=== PATIENT | female | born 1935 | race Caucasian/White ===

== ENCOUNTER 2016-04-16 10:02 | Inpatient (IN) | payer MEDICARE ==
[~2016-04-16] VITALS: Ht 162.6 cm; Wt 67.9 kg
[~2016-04-16 10:02] MED LIST: CIPR-231 PO; GABA-502 PO; HYDR-4003 PO; PRD1T PO; PRD5T PO; ZOLP5TAB6 PO; ZYL100 PO
[2016-04-16 10:06] VITALS: BP 114/73; PULSE 61; RESP 14; O2SAT 96
--- NOTE | 2016-04-16 10:16 | ED.REPORT ---
HPI-General Illness Date of Service Apr 16, 2016 ED Provider: Amari Flowers DO Pt is an 80 y/o female w/ a hx of prev UTIs, diabetes, HTN, presenting to the ED c/o generalized weakness. She was diagnosed with an uncomplicated UTI on her last hospital admission December 2015. Pt c/o associated fatigue, chills. She is normally a 1 person assist but this morning she was so weak that she couldn't put any weight on her legs. The patient had an I&D of an abscess in her left buttock performed by her PCP Dr. Ventura and packing gauze was replaced. She denies any worsening symptoms of the abscess. Pt denies cough, SOB, dysuria, abdominal pain, nausea, vomiting. She is not currently taking any antibiotics. Nursing Notes Stated Complaint: WEAKNESS,LOW GRADE FEVER Chief Complaint: General Complaint Nursing Notes Reviewed: Yes Allergies: Coded Allergies: pseudoephedrine (Verified Allergy, Unknown, 08/29/15) Scheduled Allopurinol (Allopurinol) 100 Mg Tablet 150 MG PO DAILY Ciprofloxacin (Cipro) 500 Mg Tablet 500 MG PO BID Gabapentin (Gabapentin) 300 Mg Capsule 900 MG PO TID PredniSONE (PredniSONE) 1 Mg Tab 1 MG PO QAM take along with 5mg tab for a total dose of 6mg daily Prednisone (PredniSONE) 5 Mg Tab 5 MG PO QAM take along with 1mg tab for a total dose of 6mg daily Scheduled PRN Hydrocodone-Acetaminophen 5-325 mg (Hydrocodone-Acetaminophen 5-325 mg) 1 Each Tablet 1-2 TABLET PO Q6H PRN PRN For Pain Zolpidem (Zolpidem) 5 Mg Tablet 5 MG PO HS PRN PRN Insomnia General Time Seen by MD: 10:14 Chief Complaint Weakness Hx Obtained From: Patient Arrived By: Wheelchair Sudden in Onset?: No Onset Occurred: 9 - 12 hours ago Symptom Duration: Since onset Severity: Current: No pain currently Severity: Maximum: No pain Recent Healthcare: Recent doctor visit Similar Sx Previous: Yes Past Medical History Past Medical History Hx of osteoarthritis DDD with neuropathy, followed by Dr. Odell Diabetes Hypertension Hx UTI Past Surgical History Bilat knee replacements Right hip replacement Family History Noncontributory Smoking History Former Smoker Social History Drug Use: Denies drug use Other Social History: Good social support, Local resident Ambulatory Status Wheelchair Review of Systems Full Review of Systems Constitutional: Reports: Fatigue, Fever, Weakness - generalized Respiratory: Denies: Non-productive cough, Shortness of breath GI: Denies: Abdominal pain, Nausea, Vomiting Female: Denies: Dysuria Skin: Reports Rash Complete sys rev & neg: except as marked. Physical Exam Vital Signs Vital Signs Date Time Temp Pulse Resp B/P Pulse Ox O2 Delivery O2 Flow Rate FiO2 04/16/16 10:06 36.9 61 14 114/73 96 Room Air Initial VS: Reviewed, Vital signs normal Head / Eyes: Atraumatic, Normocephalic, PERRL ENT: Mucous membranes moist, Conjunctiva normal, No scleral icterus Neck: Supple, Full range of motion Respiratory: Breath sounds normal, Clear to auscultation, No respiratory distress Cardiovascular: Regular rate & rhythm, Heart sounds normal, Intact distal pulses Abdomen / GI: Soft, Non-tender Neurologic: Alert, Oriented, Nonfocal Psychiatric: Mood/affect normal, Behavior normal, Normal thought content General/Constitutional: Awake, Alert, Cooperative, Not toxic appearing Distress / Hydration: Positive: Distress mild Appears generally fatigued Lower Extremity / Pelvis / MS: Atraumatic, Full range of motion, No deformity, Neurologic intact, Vascular intact, No compartment syndrome, No circumferential injury 5x5 cm left gluteal abscess Interpretation & Diagnostics Interpretation & Diagnostics: CT pelvis w/ contrast: IMPRESSION: Prominent midline and left paramedian fatty soft tissue edema, and inflammatory response over a 5 cm diameter area dorsal to the lower third of the left sacrum, containing gas bubbles extending almost to the skin surface. Please correlate for presence of a draining sinus in this area. Definite CT evidence of osteomyelitis is not found but MR scanning may be warranted with contrast enhancement to assess for extension of infection into the osseous elements of the left sacrum and pelvis. Dictated by: Jose R Butt M.D. on 04/16/2016 at 13:11 Approved by: Jose R Butt M.D. on 04/16/2016 at 13:14 Lab Results Interpretation Result Diagram: 04/16/16 1050 04/16/16 1050 Test 04/16/16 10:50 04/16/16 11:29 White Blood Count 13.1th/mm3 (3.8-10.1) Red Blood Count 3.93mil/mm3 (3.90-5.20) Hemoglobin 10.6g/dL (12.0-15.6) Hematocrit 35.5% (35.0-46.0) Mean Corpuscular Volume 90.3fL (81-100) Mean Corpuscular Hemoglobin 27.0pg (27.0-35.0) Mean Corpuscular Hemoglobin Concent 29.9% (32.0-37.0) Red Cell Distribution Width 18.7% (12.3-15.4) Platelet Count 300bil/L (150-400) Neutrophils (%) (Auto) 74.8% (40-74) Lymphocytes (%) (Auto) 16.1% (14-46) Monocytes (%) (Auto) 7.1% (4-12) Eosinophils (%) (Auto) 1.0% (0-5) Basophils (%) (Auto) 0.2% (0-3) Sodium Level 141mEq/L (134-144) Potassium Level 3.8mEq/L (3.5-5.2) Chloride Level 102mEq/L (97-108) Carbon Dioxide Level 22mmol/L (18-29) Blood Urea Nitrogen 27mg/dL (8-27) Creatinine 0.91mg/dL (0.57-1.00) Estimat Glomerular Filtration Rate 85mL/min (>59) Glucose Level 149mg/dL (60-99) Lactic Acid Level 1.5mmol/L (0.4-2.0) Calcium Level 9.1mg/dL (8.5-10.1) Magnesium Level 1.6mg/dL (1.6-2.6) Total Bilirubin 0.2mg/dL (0.0-1.2) Aspartate Amino Transf (AST/SGOT) 37U/L (0-50) Alanine Aminotransferase (ALT/SGPT) 10U/L (0-32) Alkaline Phosphatase 108U/L (25-165) Troponin T 0.014ug/L (0.0-0.011) Total Protein 5.8g/dL (6.4-8.4) Albumin 3.8g/dL (3.4-5.0) Procalcitonin 0.14ng/mL (0.00-0.08) Urine Color Straw (YELLOW) Urine Appearance Hazy (CLEAR,HAZY) Urine pH 5.5 (5.0-8.0) Urine Specific [place] 1.030 (1.003-1.035) Urine Protein 100mg/dL (NEG,TRACE) Urine Glucose (UA) Negativemg/dL (NEGATIVE) Urine Ketones Negativemg/dL (NEGATIVE) Urine Occult Blood Small (NEGATIVE) Urine Nitrite Negative (NEGATIVE) Urine Bilirubin Negative (NEGATIVE) Urine Urobilinogen Normalmg/dL (NORMAL) Urine Leukocyte Esterase Negative (NEGATIVE) Urine RBC 0-2/hpf (0-2) Urine WBC 0-5/hpf (0-5) Urine Epithelial Cells Occasional/hpf (NONE-MOD) Urine Crystals None seen (NONE SEEN) Urine Bacteria Many/hpf (NONE-FEW) Urine Hyaline Casts None/lpf (NONE) Urine Granular Casts Occasional (NONE SEEN) Urine Waxy Casts None seen (NONE SEEN) Urine Red Blood Cell Casts None seen (NONE SEEN) Urine White Blood Cell Casts None seen (NONE SEEN) Urine Mucus None seen (None Seen) Urine Trichomonas None seen (NONE SEEN) Urine Yeast None (NONE SEEN) Urinalysis Comment None Urine Culture Reflexed Indicated ECG Interpretation ECG Interpretation: Sinus rhythm rate 70s-80s Multiple PVCs and PACs Time: 10:38 Interpreted by: ED physician Normal ECG Interpretation: No acute ischemic changes X-Ray Chest Interpretation Chest Xray Interpretation: IMPRESSION: A prior CT has shown a medial glenoid margin fracture dislocation, at the right shoulder and the current study again shows unusually prominent medial deviation of the humeral head, position beneath the coracoid process. 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 A source of generalized weakness is not seen. Dictated by: Jose R Butt M.D. on 04/16/2016 at 11:22 Approved by: Jose R Butt M.D. on 04/16/2016 at 11:24 View: Portable, 1 view Interpretation / Wet Read by: Interpret - Radiologist Re-Eval/Medical Decision Med Decision/Clinical Course Concern for possible bacteremia and compensated buttock abscess. Elevation of troponin without cardiovascular symptoms, aspirin was given. Patient was started on antibiotics and admitted. Source of Hx: Old records Time of Eval: 12:10 Re-Evaluation/Progress Note: Pt rechecked. Informed pt of need for admission for further evaluation and management of abscess. Pt understands and agrees with plan for admission. All questions addressed. Consultation #1: Referral / Consult Name: Hiram Vidales MD Consulted With: Surgeon Call Returned at: 13:33 Health And Safety Technician: Agrees with eval, Agrees with plan Note: Will consult during admit. Consultation #2: Referral / Consult Name: Sonny Ricardo MD Consulted With: Hospitalist Call Returned at: 13:54 Health And Safety Technician: Will see patient, Agrees with eval, Agrees with plan, Accepts admit Note: Case discussed. Consultation #3: Referral / Consult Name: Jaxson Pascual MD Call Returned at: 14:02 Health And Safety Technician: Agrees with eval, Agrees with plan Note: Consulted infectious disease. He will see the patient during admit. Counseled Regarding: Diagnosis, Lab results, Need for admission Discharge & Departure Primary Impression: Abscess of buttock, left Additional Impressions: Elevated troponin Generalized weakness Disposition: ADMITTED TO HOSPITAL Discharge Condition All VS Reviewed: Yes Condition: Stable Referrals: Giovanny Ventura MD (PCP) Scribe Attestation Portions of this note were transcribed by Aubrey Pedro. I, Dr. Flowers personally performed the history, physical exam and medical decision-making; I reviewed and confirmed the accuracy of the information in the transcribed note. Signed by Katrin Damon, 04/16/16 - 1100 copies to: Giovanny Ventura MD, Timothy S DO Apr 16, 2016 10:16 AUBREY PEDRO Apr 16, 2016 10:26
[2016-04-16] MEDS ORDERED: 0.9% Sodium Chloride 1,000 ML IV ONE (10:28)
[2016-04-16 11:02] LABS: BASOPHILS % (AUTO) 0.2 % (0-3); MONOCYTES % (AUTO) 7.1 % (4-12); Mean Corpuscular Volume 90.3 fL (81-100); NEUTROPHILS % (AUTO) 74.8 % (40-74); Platelet Count 300 bil/L (150-400)
--- NOTE | 2016-04-16 11:26 | DRSVH ---
PROCEDURE: X-RAY CHEST ONE VIEW, PORTABLE ([id number]) INDICATIONS: generalized weakness TECHNIQUE: One view of the chest was acquired. COMPARISON: [facility], CT, CT SHOULDER RT WO CON, 10/10/2014, 13:05. [facility], CR, XR CHEST 1VW (PORTABLE), 12/21/2015, 10:50. [facility], CR, XR CHEST 1VW (PORT ABLE), 12/18/2015, 15:08. FINDINGS: Surgical changes and devices: None. Lungs and pleura: No pleural effusions or pneumothorax. Lungs are clear. Mediastinum: Mediastinal contours appear normal. Heart size is normal. Bones and chest wall: No suspicious bony lesions. Note is made of persistent laxity of the ligament s of the right shoulder with what likely is a anterior medial subluxation but conceivably could be a chronic anterior medial subcoracoid dislocation. Overlying soft tissues appear unremarkable. IMPRESSION: A prior CT has shown a medial glenoid margin fracture dislocation, at the right shoulder and the current study again shows unusually prominent medial deviation of the humeral head, position beneath the coracoid process. 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 A source of generalized weakness is not seen. Dictated by: Jose R Butt M.D. on 04/16/2016 at 11:22 Approved by: Jose R Butt M.D. on 04/16/2016 at 11:24
[2016-04-16 11:31] LABS: TROPONIN T 0.014 ug/L (0.0-0.011)
[2016-04-16 11:35] LABS: APPEARANCE,URINE HAZY (CLEAR,HAZY); COLOR,URINE STRAW (YELLOW); OCCULT BLOOD,URINE SMALL (NEGATIVE); PH,URINE 5.5 (5.0-8.0)
[2016-04-16 11:38] LABS: UROBILINOGEN,URINE NORMAL (NORMAL)
[2016-04-16 11:42] LABS: Magnesium 1.6 mg/dL (1.6-2.6)
[2016-04-16] MEDS ORDERED: cefTRIAXone Inj 1,000 MG in Dextrose 5% Minibag Plus 50 ML IV ONE (12:10)
[2016-04-16] MEDS ORDERED: Vancomycin Dose per Pharmacist XX ONE (12:31)
[2016-04-16] MEDS ORDERED: Vancomycin Inj 1,000 MG in IV Premix 1 EACH IV ONE (12:35)
--- NOTE | 2016-04-16 12:40 | PCM.CONPHA ---
Subjective Date of Service: Apr 16, 2016 Requesting Provider: Amari Flowers DO Reason for Pharmacy Consult: Vancomycin Dosing Objective Vital Signs Date Time Temp Pulse Resp B/P Pulse Ox O2 Delivery O2 Flow Rate FiO2 04/16/16 10:06 36.9 61 14 114/73 96 Room Air Weight (Kilograms): 67.27 Height (Feet): 5 Height (Inches): 4 Test 04/16/16 10:50 04/16/16 11:29 White Blood Count 13.1th/mm3 (3.8-10.1) Red Blood Count 3.93mil/mm3 (3.90-5.20) Hemoglobin 10.6g/dL (12.0-15.6) Hematocrit 35.5% (35.0-46.0) Mean Corpuscular Volume 90.3fL (81-100) Mean Corpuscular Hemoglobin 27.0pg (27.0-35.0) Mean Corpuscular Hemoglobin Concent 29.9% (32.0-37.0) Red Cell Distribution Width 18.7% (12.3-15.4) Platelet Count 300bil/L (150-400) Neutrophils (%) (Auto) 74.8% (40-74) Lymphocytes (%) (Auto) 16.1% (14-46) Monocytes (%) (Auto) 7.1% (4-12) Eosinophils (%) (Auto) 1.0% (0-5) Basophils (%) (Auto) 0.2% (0-3) Sodium Level 141mEq/L (134-144) Potassium Level 3.8mEq/L (3.5-5.2) Chloride Level 102mEq/L (97-108) Carbon Dioxide Level 22mmol/L (18-29) Blood Urea Nitrogen 27mg/dL (8-27) Creatinine 0.91mg/dL (0.57-1.00) Estimat Glomerular Filtration Rate 85mL/min (>59) Glucose Level 149mg/dL (60-99) Lactic Acid Level 1.5mmol/L (0.4-2.0) Calcium Level 9.1mg/dL (8.5-10.1) Magnesium Level 1.6mg/dL (1.6-2.6) Total Bilirubin 0.2mg/dL (0.0-1.2) Aspartate Amino Transf (AST/SGOT) 37U/L (0-50) Alanine Aminotransferase (ALT/SGPT) 10U/L (0-32) Alkaline Phosphatase 108U/L (25-165) Troponin T 0.014ug/L (0.0-0.011) Total Protein 5.8g/dL (6.4-8.4) Albumin 3.8g/dL (3.4-5.0) Procalcitonin 0.14ng/mL (0.00-0.08) Urine Color Straw (YELLOW) Urine Appearance Hazy (CLEAR,HAZY) Urine pH 5.5 (5.0-8.0) Urine Specific [place] 1.030 (1.003-1.035) Urine Protein 100mg/dL (NEG,TRACE) Urine Glucose (UA) Negativemg/dL (NEGATIVE) Urine Ketones Negativemg/dL (NEGATIVE) Urine Occult Blood Small (NEGATIVE) Urine Nitrite Negative (NEGATIVE) Urine Bilirubin Negative (NEGATIVE) Urine Urobilinogen Normalmg/dL (NORMAL) Urine Leukocyte Esterase Negative (NEGATIVE) Urine RBC 0-2/hpf (0-2) Urine WBC 0-5/hpf (0-5) Urine Epithelial Cells Occasional/hpf (NONE-MOD) Urine Crystals None seen (NONE SEEN) Urine Bacteria Many/hpf (NONE-FEW) Urine Hyaline Casts None/lpf (NONE) Urine Granular Casts Occasional (NONE SEEN) Urine Waxy Casts None seen (NONE SEEN) Urine Red Blood Cell Casts None seen (NONE SEEN) Urine White Blood Cell Casts None seen (NONE SEEN) Urine Mucus None seen (None Seen) Urine Trichomonas None seen (NONE SEEN) Urine Yeast None (NONE SEEN) Urinalysis Comment None Urine Culture Reflexed Indicated Assessment/Plan Assessment/Plan Vancomycin dosing per pharmacy Indication: abscess Vancomycin trough goal: 15-20 Labs: Weight: 67.27 kg SCr: 0.91 CrCl: ~42 mL/min (CG using IBW) Give one time loading dose of vancomycin 1000 mg IV now (roughly 15 mg/kg). Please reorder vancomycin per pharmacy if vancomycin is to be continued after admit. Thank you, Grisel Alcantar Pharmacist Grisel Alcantar Apr 16, 2016 12:40
--- NOTE | 2016-04-16 13:16 | DRSVH ---
PROCEDURE: CT PELVIS WITH CONTRAST ([id number]) INDICATIONS: left gluteal abscess TECHNIQUE: After the administration of intravenous contrast, 5 mm thick sections acquired from the iliac crests to the symphysis. 5 mm coronal and sagittal reformats were acquired. For radiation dose reduction, the following was used: automated exposure control, adjustment of mA and/or kV according to patient size. COMPARISON: [facility], CT, CT HIP RT WO CON, 12/18/2015, 11:43. [facility], CR, XR PELVIS W LATERAL HIP RT, 12/30/2015, 14:25. FINDINGS: Image quality: Excellent. Peritoneum and bowel: Bowel loops demonstrate normal wall thickness and caliber. No free fluid or a ir. Genitourinary: Bladder wall thickness is normal. Nodes and vessels: No iliac, pelvic, or inguinal adenopathy by size criteria. Iliac vessels demonst rate normal size and enhancement. Bones: No suspicious bony lesions that would indicate presence of osteomyelitis. Miscellaneous: No inguinal hernias. There is a left paramedian area prominent inflammation measurin g approximately 5 cm in maximal transverse dimension, containing internal gas bubbles, but extending almost to the skin surface, dorsal to the lower third of the left sacrum. The appearance may represe nt a manifestation of decubitus ulceration, or there may be a draining abscess extending to the skin surface. No rim enhancing drainable fluid collection is seen in this area, however. Moderate edema extends within the fatty soft tissues of the midline and left paramedian posterior elsewhere, contigu ously. IMPRESSION: Prominent midline and left paramedian fatty soft tissue edema, and inflammatory response over a 5 cm diameter area dorsal to the lower third of the left sacrum, containing gas bubbles extend ing almost to the skin surface. Please correlate for presence of a draining sinus in this area. Def inite CT evidence of osteomyelitis is not found but MR scanning may be warranted with contrast enhanc ement to assess for extension of infection into the osseous elements of the left sacrum and pelvis. Dictated by: Jose R Butt M.D. on 04/16/2016 at 13:11 Approved by: Jose R Butt M.D. on 04/16/2016 at 13:14
[2016-04-16] MEDS ORDERED: 0.9% Sodium Chloride 1,000 ML IV SCH (14:09)
[2016-04-16] MEDS ORDERED: Alum-Mag Hydrox-Simeth 30 mL Suspension PO PRN ×2 (14:10→19:30)
[2016-04-16] MEDS ORDERED: Ondansetron 2 mg/mL 2 mL Inj IVPUSH PRN ×2 (14:10→19:30)
[2016-04-16] MEDS ORDERED: FERR325C PO (15:03)
[2016-04-16] MEDS ORDERED: ACET325C PO (15:04)
[2016-04-16 15:43] VITALS: BP 112/71; PULSE 62; RESP 16; O2SAT 97
[2016-04-16 15:59] VITALS: PULSE 79
--- NOTE | 2016-04-16 15:59 | NUR ---
Admit Patient report given by Marco Arvizu in ED to [facility] nurse. Patient arrived to room 3018 via gurney and was transferred by staff to bed. Patient unable to bare weight at this time. Patient alert and oriented. Patient has abscess that is packed on coccyx. Patient has bruise on right elbow with 2 small scabs. Patient has old faded greenish bruise on left side of abdomen. Patient has scab on left jurado. Swollen ankles more n the right than left. Patient feet are dry. Patient was played orientation video and given call light.
[2016-04-16 16:09] VITALS: BP 127/63; PULSE 40; RESP 16; O2SAT 95
--- NOTE | 2016-04-16 17:26 | PCM.PHAPRO ---
Progress Date of Service: Apr 16, 2016 Vanco per Rx Indication: Abscess/ possible bacteremia Trough goal is 10-15, but aiming for 15 Will administer 2nd dose <24 hrs from 1st dose Trough scheduled 30 mins before 4th dose on 04/19, @ 0800 Juwan Solomon PharmD Apr 16, 2016 17:26
--- NOTE | 2016-04-16 17:48 | DRSVH ---
PROCEDURE: US VEINOUS LEG DUPLEX UNILATERAL, RIGHT INDICATIONS: 80 year-old female with new onset of right leg swelling. TECHNIQUE: Real-time imaging, as well as color and pulse Doppler interrogation, were performed of the lower extr emity deep veins from the inguinal ligament to the popliteal fossa. COMPARISON: None. FINDINGS: There is noncompressible echogenic occlusive thrombus involving the midportion of the supe rficial femoral vein, extending into the superior portion is well. There is additional echogenic thro mbus within the popliteal vein, as well as portions of the posterior tibial vein. The common femoral vein is normally compressible, and free of intraluminal thrombus. There is absent augmentation respon se to distal compression maneuver. IMPRESSION: Extensive deep venous thrombosis involving the superficial femoral vein, popliteal vein, and posterior tibial vein. Dictated by: Tavo Edwards M.D. on 04/16/2016 at 17:39 Approved by: Tavo Edwards M.D. on 04/16/2016 at 17:42
[2016-04-16] MEDS ORDERED: Heparin 5,000 Unit/mL Inj IVPUSH ONE (18:40)
[2016-04-16] MEDS ORDERED: Heparin 5,000 Unit/mL Inj IVPUSH PRN (18:40)
--- NOTE | 2016-04-16 19:03 | CONS ---
[address] [address] CONSULTATION REPORT PATIENT: XIAO MEEK : 1935 MR#: [id number] ADMIT: 04/16/2016 JOB ID: [id number] DATE OF SERVICE: 04/16/2016 REASON FOR CONSULTATION: I was asked by Dr. Flowers in the emergency department to evaluate this patient's left buttock abscess wound. HISTORY OF PRESENT ILLNESS: The patient is a 80-year-old female, who is a assisted resident who presented to the emergency department today with complaint of weakness and a febrile episode. She reports a history of a left buttock abscess which it sounds like it has slowly been brewing since January. She says that this was previously aspirated by her primary care provider but then recurred. It was then drained two times. Most recently it has been drained and then packed. In the emergency department, she was found to have a mild leukocytosis of 13.1. A CT scan of the pelvis was obtained which shows the abscess cavity. It was packed at the time of the CT. There is a little bit of fat stranding but no undrained fluid collection. She has therefore been admitted to the hospital for further treatment. PAST MEDICAL HISTORY: 1. Osteoarthritis. 2. Diabetes. 3. Hypertension. 4. Degenerative disk disease. 5. Prior history of UTIs. PAST SURGICAL HISTORY: 1. Bilateral knee replacement. 2. Right hip replacement. MEDICATIONS: Current medications reviewed and include: 1. Allopurinol. 2. Cipro. 3. Gabapentin. 4. Prednisone. FAMILY HISTORY: Family history is noncontributory. SOCIAL HISTORY: She is a former smoker. She resides in a assisted. REVIEW OF SYSTEMS: Full review of systems is obtained as per HPI. PHYSICAL EXAMINATION: She is afebrile with a temperature 36.7 degrees, heart rate of 60s and 70s, blood pressure is 127/63, she is satting 95% on room air with respiratory rate 16 breaths per minute. In general, she appears comfortable, in no acute distress. She has a regular rate and rhythm. No appreciated murmurs, rubs, gallops. Pulmonary: Lungs clear to auscultation bilaterally. Vascular: No carotid bruit. Neck: She has no thyromegaly. Lymph nodes: No cervical lymphadenopathy. GI: Her abdomen is soft, nontender, nondistended. Extremities: Warm without significant edema. The left buttock abscess cavity is inspected. It is currently packed. There is a little bit of cellulitis and mild induration around it. There is no obvious fluctuance to suggest undrained collection. ASSESSMENT AND PLAN: This is an 80-year-old female with a left buttock abscess status post incision and drainage admitted with weakness and mild leukocytosis. There is a little bit of cellulitis surrounding the abscess cavity. I think a course of antibiotics is appropriate. I put in a wound consult to have the technology sales specialist come by and assist with care for this wound. I anticipate it will not require any kind of surgical therapy. Please feel free to call me if there are any questions. Otherwise, I am going to sign off at this time.
[2016-04-16] MEDS ORDERED: Polyethylene Glycol (PEG) 17 Gm Powder PO PRN (19:30)
[2016-04-16] MEDS: Heparin 25K Unit/500mL 0.45 NS 25,000 UNIT in IV Premix 1 EACH IV SCH (20:10)
[2016-04-16 20:24] VITALS: BP 130/68; PULSE 48; RESP 16; O2SAT 97
--- NOTE | 2016-04-16 21:14 | PCM.HPMED ---
Subjective Date of Service Apr 16, 2016 Primary Provider: Admitting Physician: Sonny Ricardo MD Primary Care Physician: Giovanny Ventura MD Attending Physician: oSnny Ricardo MD Admit Status: From the Emergency Department Chief Complaint: Generalized weakness and left gluteal abscess History of Present Illness: 80 yr old female with history of diabetes mellitus that is diet controlled and hypertension presents to the hospital with complaint of generalized weakness and concern regarding gluteal abscess. Pt reports that her weakness began about 1 month ago. She states that her strength comes and goes, but over the past few days she reports that she has become increasingly weak, to the point where she is unable to stand on her own, something she was able to do previously. Patient reports that she has been lying in bed, and has been too tired to do much else. Regarding her abscess, pt reports that it appeared after she was discharged home from [facility] in February. Pt reports that it began as a small painful lump, and then began increasing in size. She states that she following up with her PCP who used a needle to drain the area. She states that soon after, the area continued to get larger, and which point her PCP cut into the area. She is unsure if there was any purulent discharge at the time of incision. Pt reports that the area began becoming more painful, and yesterday was seen again by her PCP, and a larger incision was made and a drain placed. Pt reports that she has not been prescribed any antibiotics for this wound. Pt reports that she became concerned when she began to have a fever of 99.7. Pt reports that she has been experiencing chills, diaphoresis and worsening fatigue. Patient denies any nausea, and vomiting, but does report diarrhea. Pt also reports that the wound is becoming increasingly more painful with significant amount of drainage. Patient reports that she has never had an abscess in the past. In the ER, pt was afebrile and hemodynamically stable. Labs demonstrated elevated WBC of 13.1, Lactic acid of 1.5, troponin of 0.014, procalcitonin 0.14. Blood cultures drawn. Patient is admitted under inpatient status with expected length of stay greater than 2 midnights due to severity of presenting symptoms, risk of adverse event, and complexity of treatment plan. Review of Systems: A comprehensive review of systems was conducted with the patient and found to be negative except as above in the History of Present Illness. Allergies Coded Allergies: pseudoephedrine (Verified Allergy, Intermediate, Rash, 04/16/16) Home Medications Allopurinol Prednisone 6mg daily PMH Diabetes mellitus Hypertension UTI PMR Surgical History Knee replacement Hip replacement Back surgery x 3 Social History Hx Alcohol Use: No Hx Substance Use: No Hx Tobacco Use: Yes (HX OF SMOKING FOR 20 YEARS, quit in 1971) Smoking Status: Former Smoker Living Arrangement: Assisted Living ([facility]) Exam Vital Signs Vital Sign - Last Date Time Temp Pulse Resp B/P Pulse Ox O2 Delivery O2 Flow Rate FiO2 04/16/16 16:09 36.7 40 16 127/63 95 Room Air Exam General: Frail elderly female lying in bed. No acute distress, appropriately interactive HEENT: Normocephalic, atraumatic. External ears without defect. Anicteric sclerae, moist conjunctivae. Oropharynx with moist mucosa. Neck: Supple with full range of motion. Cardiovascular: Regular rate and rhythm with no murmurs, rubs, or gallops appreciated Pulmonary: Clear to auscultation bilaterally with no crackles, wheezes, or rhonchi. Normal respiratory effort with no use of accessory muscles. Abdomen: Bowel tones present. Soft, nontender, nondistended. Extremities: Right lower extremity has significantly larger circumference. Right lower extremity with 2+ pitting edema. No edema on left lower extremity. Skin: Large area of erythema and induration on the left gluteal region. Opening on left gluteal region with packing present. Dressing with some yellow drainage. Psychiatric: Normal mood and affect. Alert and oriented to person, place, and time. Lab and Diagnostics Result Diagram: 04/16/16 1050 04/16/16 1050 X-Rays, CTs and MRIs PROCEDURE: X-RAY CHEST ONE VIEW, PORTABLE ([id number]) INDICATIONS: generalized weakness TECHNIQUE: One view of the chest was acquired. COMPARISON: [facility], CT, CT SHOULDER RT WO CON, 10/10/2014, 13: 05. [facility], CR, XR CHEST 1VW (PORTABLE), 12/21/2015, 10:50. [facility], CR, XR CHEST 1VW (PORTABLE), 12/18/2015, 15:08. FINDINGS: Surgical changes and devices: None. Lungs and pleura: No pleural effusions or pneumothorax. Lungs are clear. Mediastinum: Mediastinal contours appear normal. Heart size is normal. Bones and chest wall: No suspicious bony lesions. Note is made of persistent laxity of the ligaments of the right shoulder with what likely is a anterior medial subluxation but conceivably could be a chronic anterior medial subcoracoid dislocation. Overlying soft tissues appear unremarkable. IMPRESSION: A prior CT has shown a medial glenoid margin fracture dislocation, at the right shoulder and the current study again shows unusually prominent medial deviation of the humeral head, position beneath the coracoid process. 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 A source of generalized weakness is not seen. Dictated by: Jose R Butt M.D. on 04/16/2016 at 11:22 Approved by: Jose R Butt M.D. on 04/16/2016 at 11:24 PROCEDURE: CT PELVIS WITH CONTRAST ([id number]) INDICATIONS: left gluteal abscess TECHNIQUE: After the administration of intravenous contrast, 5 mm thick sections acquired from the iliac crests to the symphysis. 5 mm coronal and sagittal reformats were acquired. For radiation dose reduction, the following was used: automated exposure control, adjustment of mA and/or kV according to patient size. COMPARISON: [facility], CT, CT HIP RT WO CON, 12/18/2015, 11:43. [facility], CR, XR PELVIS W LATERAL HIP RT, 12/30/2015, 14:25. FINDINGS: Image quality: Excellent. Peritoneum and bowel: Bowel loops demonstrate normal wall thickness and caliber. No free fluid or air. Genitourinary: Bladder wall thickness is normal. Nodes and vessels: No iliac, pelvic, or inguinal adenopathy by size criteria. Iliac vessels demonstrate normal size and enhancement. Bones: No suspicious bony lesions that would indicate presence of osteomyelitis. Miscellaneous: No inguinal hernias. There is a left paramedian area prominent inflammation measuring approximately 5 cm in maximal transverse dimension, containing internal gas bubbles, but extending almost to the skin surface, dorsal to the lower third of the left sacrum. The appearance may represent a manifestation of decubitus ulceration, or there may be a draining abscess extending to the skin surface. No rim enhancing drainable fluid collection is seen in this area, however. Moderate edema extends within the fatty soft tissues of the midline and left paramedian posterior elsewhere, contiguously. IMPRESSION: Prominent midline and left paramedian fatty soft tissue edema, and inflammatory response over a 5 cm diameter area dorsal to the lower third of the left sacrum, containing gas bubbles extending almost to the skin surface. Please correlate for presence of a draining sinus in this area. Definite CT evidence of osteomyelitis is not found but MR scanning may be warranted with contrast enhancement to assess for extension of infection into the osseous elements of the left sacrum and pelvis. Dictated by: Jose R Butt M.D. on 04/16/2016 at 13:11 Approved by: Jose R Butt M.D. on 04/16/2016 at 13:14 PROCEDURE: US VEINOUS LEG DUPLEX UNILATERAL, RIGHT INDICATIONS: 80 year-old female with new onset of right leg swelling. TECHNIQUE: Real-time imaging, as well as color and pulse Doppler interrogation, were performed of the lower extremity deep veins from the inguinal ligament to the popliteal fossa. COMPARISON: None. FINDINGS: There is noncompressible echogenic occlusive thrombus involving the midportion of the superficial femoral vein, extending into the superior portion is well. There is additional echogenic thrombus within the popliteal vein, as well as portions of the posterior tibial vein. The common femoral vein is normally compressible, and free of intraluminal thrombus. There is absent augmentation response to distal compression maneuver. IMPRESSION: Extensive deep venous thrombosis involving the superficial femoral vein, popliteal vein, and posterior tibial vein. Dictated by: Tavo Edwards M.D. on 04/16/2016 at 17:39 Approved by: Tavo Edwards M.D. on 04/16/2016 at 17:42 Assessment & Plan Acute cellulitis on left gluteal region, present on admission, ongoing -CT of pelvis demonstrates"Prominent midline and left paramedian fatty soft tissue edema, and inflammatory response over a 5 cm diameter area dorsal to the lower third of the left sacrum, containing gas bubbles extending almost to the skin surface" -Surgery was consulted in the ER, and have agreed to see the patient -ID was also consulted in the ER, and have agreed to see the patient -Pt received Vancomycin and Rocephin in ER, we will continue with these antibiotics -IVF at 100mls/hr -Daily labs -Wound care consult will likely be needed following surgical consult.Not yet ordered Acute right leg DVT, present on admission, ongoing -US of right leg demonstrating "Extensive deep venous thrombosis involving the superficial femoral vein, popliteal vein, and posterior tibial vein." -Likely secondary to patient being sedentary due to her generalized fatigue -Heparin protocol initiated -Continue to monitor Generalized weakness -Unclear etiology currently -Physical therapy consult has been ordered to assess pt ability and functional status -It is possible that recent hospitalization and current infection and dvt are causing the weakness. Elevated troponin, acuity unknown -Pt had elevated troponin in ER -Trending troponin -Unclear etiology. Pt denies any chest pain or pressure -Pt is on telemetry, continue to monitor Diabetes mellitus diet controlled -Will monitor blood sugars -No correctional insulin ordered at this time, if pt has uncontrolled blood sugars, which is possible in the setting of infection, will start correction low dose insulin -Diabetic diet Chronic hypertension -Currently pt is normotensive -No home medications reported by patient for htn -Will continue to monitor CODE STATUS: compressions and cardioversion ok, no intubation. Resuscitation Status: Limited Interventions Limited Interventions: Compressions, Cardioversion/Defibrillation Attending Statement The patient was seen and examined together with Dr. Mello on 04/16/2016 and I agree with the history, exam and plan as outlined in the note above. Tawanna Mello DO Apr 16, 2016 20:17 Sonny Ricardo MD Apr 17, 2016 11:57
--- NOTE | 2016-04-16 22:15 | CONS ---
[address] [address] CONSULTATION REPORT PATIENT: XIAO MEEK : 1935 MR#: [id number] ADMIT: 04/16/2016 JOB ID: [id number] DATE OF SERVICE: 04/16/[address] Ricardo for this timely consult. REASON FOR CONSULTATION: Left buttock abscess. HISTORY OF PRESENT ILLNESS: The patient is an 80-year-old woman with a complex medical history including severe osteoarthritis, polymyalgia rheumatica, neuropathy, diabetes and hypertension. She lives in an assisted living facility and gets around in a wheelchair. She spends all of her time either in a wheelchair in bed and really can only take a few steps because of leg weakness and arthritis. About a month or six weeks ago, she noticed a pimple or tender red area on her left buttock. This gradually worsened and she saw her private physician, Dr. Ventura, a couple of times for drainage of this left buttock abscess. He placed a drain and eventually that stopped draining and so it was once again lanced and drained just yesterday, April 15, in his office. Unfortunately, the patient started to have more pain and so she called Dr. Ventura and he recommended to go to the ED. In the ED, she was found to have a leukocytosis and was admitted to the hospital where a CT scan has been done and a surgeon consulted. Throughout this several weeks of left buttock abscess, the patient has had no fevers, chills, or sweats at all though tonight just in the hospital she said she feels a bit chilled but it may just be the different surroundings. She has not had any nausea, vomiting, diarrhea, or weight loss in association with this process. She finds it painful and, of course, it hurts her to sit in a wheelchair in certain positions with this abscess and that has probably been the major problem with it. She denies prior history of buttock abscess though she does have a good history in terms of frequent urinary tract infections. PAST MEDICAL HISTORY: 1. Polymyalgia rheumatica requiring constant low-dose prednisone currently at 6 mg. 2. Diabetes. 3. Degenerative joint disease, severe. 4. Hypertension. 5. Severe peripheral neuropathy. 6. Degenerative spine and disk disease. 7. History of multiple UTIs. 8. Status post bilateral knee replacements. 9. Status post right hip replacement. SOCIAL HISTORY: The patient smoked in the distant past but has not for many decades. She does not drink alcohol or use illicit drugs. FAMILY HISTORY: Including parents, siblings and children negative for tuberculosis. REVIEW OF SYSTEMS: Was done. The patient says that she has no headache, no visual complaints, no sore throat. No cough, shortness of breath or chest pain. No nausea, vomiting, or diarrhea. She does have pain in her joints especially in the lower extremities on an almost constant basis as well as painful neuropathies in her feet and legs below the knees which almost preclude her from walking. Remainder of the review of systems is negative. PHYSICAL EXAMINATION: Reveals an afebrile woman, temp 36.4, pulse 48, respiratory rate 16, blood pressure 130/68, she is saturating 97% on room air. Examination of the head reveals some minimal temporal wasting perhaps though her BMI is 25. Her eyes are without conjunctivitis or scleral icterus. Nose normal. Oral cavity: No pharyngitis or thrush. Neck: Reasonably supple. The lungs are quite clear bilaterally while the patient is sitting up. Cardiac tones: Regular rate and rhythm without notable murmur. The abdomen is soft and nontender without organomegaly. The hands have changes that I would describe as consistent with rheumatoid arthritis with almost some swan neck deformity, but the patient states that she has been told this is osteoarthritis. The patient has scars in the lower extremity consistent with her hip and knee replacements. She has wasting of the lower extremities diffusely but there is no evidence for edema, cellulitis or skin breakdown. She has minimal 3 to 4/5 strength in the lower extremities. The patient was rolled over which required some effort as she is so profoundly weak she cannot roll over in bed and apparently this is chronic. Her left buttock has an area about 5 x 4 cm across which is erythematous, mildly tender, and has packing placed in the center of it. There is no obvious fluctuance or additional abscess to be drained. LABS: Include white count 13,000, platelet count 300,000, creatinine 0.91. LFTs are normal. Procalcitonin 0.14. The patient's blood cultures were done in the ED this morning and are pending. Urine culture is likewise pending. IMAGING: Imaging includes a chest x-ray which shows clear lung jacinto. A pelvic CT was done which shows left paramedian fatty soft tissue edema and inflammatory response over about a 5 cm area near the left sacrum. There are some gas bubbles present within this and there is also a drain in the area. No definitive evidence of osteomyelitis is seen. IMPRESSION: This appears to be a straightforward case of a woman with a brewing left buttock/gluteal abscess which has been going on for several weeks. At least two attempts to drain this in the outpatient setting have occurred and though the abscess has not gotten a whole lot worse, it has not gotten better either. She has already been evaluated by Surgery who did not think any more drainage procedures were necessary and recommended a course of antibiotics and a visit from Wound Management. The radiologist did not see evidence of osteo but suggested that if we wanted to look for it we could do an MRI scan with contrast. Given the patient's nontoxic appearance, I am not certain that that would actually be worthwhile at this point. The patient was started on vancomycin and ceftriaxone. I would really prefer not to use vancomycin in this elderly woman as we have no particular evidence or reason to think that she has MRSA, and it would be much more likely to cause toxicity than benefit. The ceftriaxone in and of itself is reasonable, but we would like some anaerobe coverage thrown in. RECOMMENDATIONS: 1. We will discontinue the vancomycin. 2. A MRSA screen of the nares will be done to help exclude that possibility. 3. Flagyl 500 b.i.d. will be added to the IV ceftriaxone is it can be an oral anaerobe agent. 4. We will confer with Wound Management tomorrow to see if they have any additional ideas on this case. 5. I will order a CRP for tomorrow morning. If the CRP is grossly elevated or we become more concerned about osteo, we might conceivably consider an MRI scan of the region, but I am not at all certain after what I have seen here tonight that that will be necessary.
[2016-04-16] MEDS: HYDROcodone-APAP 5-325 mg Tablet PO PRN (22:29)
[2016-04-17] VITALS (8 sets, daily range): BP systolic 115–154; BP diastolic 55–87; PULSE 43–98; RESP 18; O2SAT 93–97
[2016-04-17] MEDS: 0.9% Sodium Chloride 1,000 ML IV SCH ×3 (05:28→17:42)
[2016-04-17] MEDS: HYDROcodone-APAP 5-325 mg Tablet PO PRN ×2 (05:49→21:08)
[2016-04-17 06:37] LABS: BASOPHILS % (AUTO) 0.3 % (0-3); EOSINOPHILS % (AUTO) 2.8 % (0-5); Mean Corpuscular Hemoglobin 27.3 pg (27.0-35.0); Mean Corpuscular Volume 90.6 fL (81-100); NEUTROPHILS % (AUTO) 57.2 % (40-74); Platelet Count 276 bil/L (150-400)
[2016-04-17 07:50] LABS: INR 1.1 ratio
[2016-04-17] MEDS: predniSONE 5 mg Tablet PO SCH (07:51)
[2016-04-17] MEDS: predniSONE 1 mg Tablet PO SCH (07:52)
[2016-04-17] MEDS ORDERED: Vancomycin Inj 1,000 MG in IV Premix 1 EACH IV SCH (08:30)
[2016-04-17] MEDS ORDERED: Vancomycin Inj 1,250 MG in 0.9% Sodium Chloride 250 ML IV SCH (08:30)
[2016-04-17] MEDS ORDERED: Vancomycin Dose per Pharmacist XX SCH (08:30)
[2016-04-17] MEDS ORDERED: cefTRIAXone Inj 1,000 MG in Dextrose 5% Minibag Plus 50 ML IV SCH (08:30)
[2016-04-17] MEDS: cefTRIAXone Inj 2,000 MG in Dextrose 5% Minibag Plus 50 ML IV SCH (09:07)
[2016-04-17] MEDS ORDERED: KCl 40 mEq/D5W 500 mL 40 MEQ in IV Premix 1 EACH IV ONE (09:30)
--- NOTE | 2016-04-17 11:37 | NUR ---
Wound Care Wound evaluation ordered, pt seen at bedside. 80 yo female, steroid dependent for arthritis, presents with left buttock abscess present since February. Wound presents as a 1.5 cm opening with packing, removal of packing reveals moderate purulent discharge free flowing from the wound, there is a slight odor to the wound, periwound is erythematous. Probing of the wound reveals it to have a depth of 5.5 cms. Wound is painful to the touch. Decision made to take a deep swab culture of this wound, pt is currently on ceftriaxone and vancomycin. For now wound is packed with 1/4" iodoform packing strip and covered with an adhesive foam dressing, this can be changed by nursing daily. Will await culture results.
--- NOTE | 2016-04-17 12:34 | PCM.CONPHA ---
Assessment/Plan Assessment/Plan ANTICOAGULATION MANAGEMENT BY PHARMACY -INDICATION: DVT -HOME DOSE: NEW START -CONCURRENT ANTICOAGULATION: HEPARIN DRIP PER PROTOCOL -CRCL: 41 ML/MIN -COAG TRENDS: Date INR 1.10 -[id number] SCORE: 5 PLAN: Patient with a current left leg DVT being transitioned to outpatient care. In hospital she has been treated with a heparin drip per the DVT protocol, now we will be starting her on Coumadin which she will continue as an outpatient. Since she is a new start we will start her on a 5 mg dose and continue to monitor and adjust as appropriate. Pharmacy appreciates consult and will continue to monitor. THANKS! Nydia Mayr PharmD Apr 17, 2016 12:34
--- NOTE | 2016-04-17 13:23 | NUR ---
[facility] signed
--- NOTE | 2016-04-17 15:41 | PROG NOTE ---
[address] [address] PROGRESS NOTE PATIENT: XIAO MEEK : 1935 MR#: [id number] ADMIT: 04/16/2016 JOB ID: [id number] DATE: 04/17/2016 INFECTIOUS DISEASE FOLLOWUP NOTE: REASON FOR FOLLOWUP: Extensive buttock abscess. INTERVAL HISTORY: I discussed this case this morning with Dusty Rivas of the wound management team. He was called in to evaluate this wound, and took out the packing that had been in place and probed down about 5 cm and found this was quite an extensive decubitus ulcer. He encountered some degree of purulence and obtained appropriate cultures. He and I discussed the management of the wound. The patient tells me today she still has some mild to moderate pain at the site of this abscess. Otherwise, she has no fevers, no chills, no sweats. No cough or shortness of breath. She denies abdominal complaints such as nausea, vomiting, or diarrhea. PHYSICAL EXAMINATION: Reveals an afebrile woman. Temp 36.8, pulse 98, respiratory rate 18, blood pressure 154/87. She is saturating well on room air. In no acute distress. Lungs are clear. Cardiac tones unchanged and without murmur. The abdomen is soft and nontender. I did not unpack the wound, as it had just been done by Dusty Rivas, and I discussed it with him. There is no skin rash notable. LABORATORIES: Include a white count down to 9500. Normal diff is noted. Creatinine 0.77. CRP 4.9. LFT normal. Urine without white cells. MRSA screen is still pending. Will be done later this evening. Blood cultures are negative. The urine is actually growing a streptococcal species to be identified. IMPRESSION: This is an unfortunate patient with polymyalgia rheumatica, diabetes, neuropathy and a great deal of trouble moving around on her own. She has developed quite a significant decubitus ulcer, which has been going on for several weeks and has already been drained as an outpatient on two or three occasions. She now has had the wound opened up and thoroughly drained by our wound case management coordinator, and evaluated by the surgeon as well. We still do not have any definitive organisms but I suspect there are anaerobes, as well as enteric gram-negative rods. RECOMMENDATIONS: 1. We await the MRSA screen and the culture performed today of the abscess by Mr. Rivas. 2. Will continue with ceftriaxone IV and oral Flagyl. 3. The CRP is elevated. I think it might be worthwhile to repeat one in two or three days to make sure it is going down appropriately or we might need to think about osteo but right now, I think osteo is an unlikely possibility. 4. It is probably reasonable to keep the patient in the hospital at least over the short term to watch this wound and make sure it is starting to improve. When she is ready for discharge, an oral option such as Augmentin might be a good choice here, assuming the cultures show the isolated organisms are susceptible. 5. Note that I will be out of town the next three days, and I will be back in the hospital April 21 but I can be reached by telephone, text, or email as needed about this or any other case.
--- NOTE | 2016-04-17 16:28 | NUR ---
Social Work: Initial Assessment D: Per EMR review, pt is an 80 year old female admitted for buttock abscess, elevated troponin. Pt is Medicare with [employer] Supplement; pt has no LTC insurance or VA benefits. NOK is [place], son, . POLST on file- Advanced directives completed and requested from pt's family. Readmit score is low, 2/8. Pt discussed in am rounds. Pt to likely require skilled rehab based on current condition. PT recommendation also supports skilled rehab. [employer]HWAY MA[employer]TE[employer]CE [employer]ER met with pt and daughter at bedside. Sw role and contact information provided. See initial assessment. Pt is from [facility]. Pt is primarily wheelchair bound but is I with transfers. HIGHW[employer] MAINTENANCE [employer] WORKER reviewed PT and MD recommendations for SNF. Pt states that she has been to [facility] recently and would like to return there to build more strength and possibly progress with ambulation. HIGHW[employer] MAINTENANCE [employer]W WORKER fax referral to [facility] and provided access. PPW on chart. PASSR completed A: Pt who primarily is w/c bound but was previously ambulating 15 feet with FWW. P: Anticipate discharge to skilled rehab; [facility] is reviewing for possible admission. HIGHWAY MAINTENANCE [employer]W WORKER to continue to follow and assist with dcp. FARRUKH Meadows Addendum: 04/17/16 at 1642 by YVAN KHANNA SS Amended: Links added.
--- NOTE | 2016-04-17 18:21 | NUR ---
Patient update Patient alert and orientedX3. Patient was assisted to C with PT and nurse. Patient did not tolerate activity well. Patient continues to use bedpan for voiding. Patient has been repositioned Q2hour. Patient remains on Heparin drip currently running at 14mL/hour. Patient last PTT was 63.7 and had no change to rate of Heparin drip. Patient has had tolerable pain levels today of 2/10 and did not want any pain medication.
[2016-04-17] MEDS: Heparin 25K Unit/500mL 0.45 NS 25,000 UNIT in IV Premix 1 EACH IV SCH (20:52)
--- NOTE | 2016-04-17 21:57 | NUR ---
Heparin Gtt Patient heparin gtt at 14units/kg/hr. accidently ordered PTT at 2100 instead of 0600. PTT subtherapeutic at 56 previous PTT at 1930 therapeutic 63. consulted charge nurse patient has not been on heparin gtt for 24 hours. increased infusion to 15 units/kg/hr per heparin protocol. patient has no signs/symptoms of bleeding. recheck heparin in 6 hours at 0315 per protocol. will continue to monitor.
--- NOTE | 2016-04-17 22:10 | PCM.PNMED ---
Subjective Date of Service Apr 17, 2016 Subjective Patient reports no improvement from the previous day. She states that her legs are causing her considerable pain, and also that her buttock is very painful. Pt reports that she is very tired, and has very little energy. Exam Vital Signs Vital Sign - Last Date Time Temp Pulse Resp B/P Pulse Ox O2 Delivery O2 Flow Rate FiO2 04/17/16 18:20 37.2 60 18 150/74 97 Room Air Intake and Output 04/16/16 04/16/16 04/17/16 Cumulative From/Thru 15:00 23:00 07:00 04/16/16 10:06 - 04/17/16 02:49 Output Total 300 ml 300 ml Balance -300 ml -300 ml Output Urine Total 300 ml 300 ml Exam General: Frail elderly female sleepinh in bed. No acute distress, appropriately interactive HEENT: Normocephalic, atraumatic. External ears without defect. Anicteric sclerae, moist conjunctivae. Oropharynx with moist mucosa. Cardiovascular: Regular rate and rhythm with no murmurs, rubs, or gallops appreciated Pulmonary: Clear to auscultation bilaterally with no crackles, wheezes, or rhonchi. Normal respiratory effort with no use of accessory muscles. Abdomen: Bowel tones present. Soft, nontender, nondistended. Extremities: Right lower extremity has significantly larger circumference. Right lower extremity with 2+ pitting edema. No edema on left lower extremity. Skin: Large area of erythema and induration on the left gluteal region. Psychiatric: Normal mood and affect. Alert and oriented to person, place, and time. IVs and Medications Medications Reviewed: Medications were reviewed in detail Lab and Diagnostics Result Diagram: 04/17/1662504/17/16625 X-Rays, CTs and MRIs PROCEDURE: X-RAY CHEST ONE VIEW, PORTABLE ([id number]) INDICATIONS: generalized weakness TECHNIQUE: One view of the chest was acquired. COMPARISON: [facility], CT, CT SHOULDER RT WO CON, 10/10/2014, 13: 05. [facility], CR, XR CHEST 1VW (PORTABLE), 12/21/2015, 10:50. [facility], CR, XR CHEST 1VW (PORTABLE), 12/18/2015, 15:08. FINDINGS: Surgical changes and devices: None. Lungs and pleura: No pleural effusions or pneumothorax. Lungs are clear. Mediastinum: Mediastinal contours appear normal. Heart size is normal. Bones and chest wall: No suspicious bony lesions. Note is made of persistent laxity of the ligaments of the right shoulder with what likely is a anterior medial subluxation but conceivably could be a chronic anterior medial subcoracoid dislocation. Overlying soft tissues appear unremarkable. IMPRESSION: A prior CT has shown a medial glenoid margin fracture dislocation, at the right shoulder and the current study again shows unusually prominent medial deviation of the humeral head, position beneath the coracoid process. 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 A source of generalized weakness is not seen. Dictated by: Jose R Butt M.D. on 04/16/2016 at 11:22 Approved by: Jose R Butt M.D. on 04/16/2016 at 11:24 PROCEDURE: CT PELVIS WITH CONTRAST ([id number]) INDICATIONS: left gluteal abscess TECHNIQUE: After the administration of intravenous contrast, 5 mm thick sections acquired from the iliac crests to the symphysis. 5 mm coronal and sagittal reformats were acquired. For radiation dose reduction, the following was used: automated exposure control, adjustment of mA and/or kV according to patient size. COMPARISON: [facility], CT, CT HIP RT WO CON, 12/18/2015, 11:43. [facility] [place], CR, XR PELVIS W LATERAL HIP RT, 12/30/2015, 14:25. FINDINGS: Image quality: Excellent. Peritoneum and bowel: Bowel loops demonstrate normal wall thickness and caliber. No free fluid or air. Genitourinary: Bladder wall thickness is normal. Nodes and vessels: No iliac, pelvic, or inguinal adenopathy by size criteria. Iliac vessels demonstrate normal size and enhancement. Bones: No suspicious bony lesions that would indicate presence of osteomyelitis. Miscellaneous: No inguinal hernias. There is a left paramedian area prominent inflammation measuring approximately 5 cm in maximal transverse dimension, containing internal gas bubbles, but extending almost to the skin surface, dorsal to the lower third of the left sacrum. The appearance may represent a manifestation of decubitus ulceration, or there may be a draining abscess extending to the skin surface. No rim enhancing drainable fluid collection is seen in this area, however. Moderate edema extends within the fatty soft tissues of the midline and left paramedian posterior elsewhere, contiguously. IMPRESSION: Prominent midline and left paramedian fatty soft tissue edema, and inflammatory response over a 5 cm diameter area dorsal to the lower third of the left sacrum, containing gas bubbles extending almost to the skin surface. Please correlate for presence of a draining sinus in this area. Definite CT evidence of osteomyelitis is not found but MR scanning may be warranted with contrast enhancement to assess for extension of infection into the osseous elements of the left sacrum and pelvis. Dictated by: Jose R Butt M.D. on 04/16/2016 at 13:11 Approved by: Jose R Butt M.D. on 04/16/2016 at 13:14 PROCEDURE: US VEINOUS LEG DUPLEX UNILATERAL, RIGHT INDICATIONS: 80 year-old female with new onset of right leg swelling. TECHNIQUE: Real-time imaging, as well as color and pulse Doppler interrogation, were performed of the lower extremity deep veins from the inguinal ligament to the popliteal fossa. COMPARISON: None. FINDINGS: There is noncompressible echogenic occlusive thrombus involving the midportion of the superficial femoral vein, extending into the superior portion is well. There is additional echogenic thrombus within the popliteal vein, as well as portions of the posterior tibial vein. The common femoral vein is normally compressible, and free of intraluminal thrombus. There is absent augmentation response to distal compression maneuver. IMPRESSION: Extensive deep venous thrombosis involving the superficial femoral vein, popliteal vein, and posterior tibial vein. Dictated by: Tavo Edwards M.D. on 04/16/2016 at 17:39 Approved by: Tavo Edwards M.D. on 04/16/2016 at 17:42 Assessment & Plan Acute cellulitis on left gluteal region, present on admission, ongoing -CT of pelvis demonstrates"Prominent midline and left paramedian fatty soft tissue edema, and inflammatory response over a 5 cm diameter area dorsal to the lower third of the left sacrum, containing gas bubbles extending almost to the skin surface" -Surgery was consulted, and do not feel surgery is warranted at this time -ID was also consulted and we appreciate Dr Pascual's input--Discontinue Vancomycin, continue ceftriaxone, start flagyl. CRP to be ordered in 2-3 days. MRSA screen is pending -IVF decreased to 60mls/hr -Daily labs -Wound care seeing patient, and have taken wound culture-pending results. Acute right leg DVT, present on admission, ongoing -US of right leg demonstrating "Extensive deep venous thrombosis involving the superficial femoral vein, popliteal vein, and posterior tibial vein." -Likely secondary to patient being sedentary due to her generalized fatigue -Heparin protocol in place -Continue to monitor -Coumadin to be managed by pharmacy Generalized weakness -Unclear etiology currently -Physical therapy to work with patient -It is possible that recent hospitalization and current infection and dvt are causing the weakness. Elevated troponin, acuity unknown -Pt had elevated troponin in ER -Trending troponin q 6 hours, which has now normalized. -Unclear etiology. Pt denies any chest pain or pressure -Pt is on telemetry, continue to monitor Acute hypokalemia, not present on admission, ongoing -Pt had decreased K level -IV KCl 40 given -Monitor and replenish as needed Diabetes mellitus diet controlled -Will monitor blood sugars -No correctional insulin ordered at this time, if pt has uncontrolled blood sugars, which is possible in the setting of infection, will start correction low dose insulin -Diabetic diet Chronic hypertension -Currently pt is normotensive -No home medications reported by patient for htn -Will continue to monitor CODE STATUS: compressions and cardioversion ok, no intubation. Resuscitation Status: Limited Interventions Limited Interventions: Compressions, Cardioversion/Defibrillation Attending Statement The patient was seen and examined together with Dr. Mello on 04/17/2016 and I agree with the history, exam and plan as outlined in the note above. Tawanna Mello DO Apr 17, 2016 22:10 Sonny Ricardo MD Apr 18, 2016 14:09
[2016-04-18] VITALS (8 sets, daily range): BP systolic 119–176; BP diastolic 64–89; PULSE 43–97; RESP 17–18; O2SAT 95–96
[2016-04-18 03:25] LABS: INR 1.07 ratio
[2016-04-18 03:59] LABS: Creatine Kinase 33 U/L (21-215)
--- NOTE | 2016-04-18 05:54 | NUR ---
BM pt has NOT had a bowel movement " for a few days, and that's not normal for me" . Pt denies pain or abdominal discomfort. Maybe try encouraging prune juice and movement as much as possible.
[2016-04-18 06:36] LABS: BASOPHILS % (AUTO) 0.3 % (0-3); EOSINOPHILS % (AUTO) 3.1 % (0-5); Mean Corpuscular Hemoglobin 27.2 pg (27.0-35.0); Mean Corpuscular Volume 90.3 fL (81-100); NEUTROPHILS % (AUTO) 56.3 % (40-74); Platelet Count 274 bil/L (150-400)
--- NOTE | 2016-04-18 07:49 | PCM.PHAPRO ---
Progress Generalized weakness and left gluteal abscess Date Apr 18-Apr INR 1.10 1.07 INR change -0.03 Warf Dose 5 mg 5 MG Scottie Dahl Apr 18, 2016 07:49
--- NOTE | 2016-04-18 09:11 | NUR ---
Heparin drip: Patients heparin drip is at 15ml/hr not 19 ml/hr as charted. Per Noc shift heparin drip will continue at 15/ml hr untill this morning lab draw.
[2016-04-18] MEDS: predniSONE 1 mg Tablet PO SCH (09:17)
[2016-04-18] MEDS: predniSONE 5 mg Tablet PO SCH (09:17)
[2016-04-18] MEDS: cefTRIAXone Inj 2,000 MG in Dextrose 5% Minibag Plus 50 ML IV SCH (09:29)
[2016-04-18] MEDS: 0.9% Sodium Chloride 1,000 ML IV SCH (13:34)
[2016-04-18] MEDS: HYDROcodone-APAP 5-325 mg Tablet PO PRN ×2 (13:40→21:34)
--- NOTE | 2016-04-18 15:18 | PCM.PNMED ---
Subjective Date of Service Apr 18, 2016 Subjective Patient reports that she is feeling slightly better today, and definitely feels better than she did on admission. Pt reports that she continues to feel weak. She denies any episodes of chills, sweating, fevers, nausea, vomiting or diarrhea since being in the hospital. She reports that she feels her leg pain is improving. She denies any chest pain, or shortness of breath. Exam Vital Signs Vital Sign - Last Date Time Temp Pulse Resp B/P Pulse Ox O2 Delivery O2 Flow Rate FiO2 04/18/16 13:36 37.1 51 18 176/79 95 Room Air Intake and Output 04/17/16 04/17/16 04/18/16 Cumulative From/Thru 15:00 23:00 07:00 04/16/16 10:06 - 04/18/16 07:00 Intake Total 200 ml 1525 ml 875 ml 2600 ml Output Total 925 ml 300 ml 750 ml 2275 ml Balance -725 ml 1225 ml 125 ml 325 ml Intake Oral 200 ml 400 ml 0 ml 600 ml IV Total 1125 ml 875 ml 2000 ml Output Urine Total 925 ml 300 ml 750 ml 2275 ml # Voids 4 1 5 # Bowel Movements 0 0 Exam General: Frail elderly female. No acute distress, appropriately interactive HEENT: Normocephalic, atraumatic. External ears without defect. Anicteric sclerae, moist conjunctivae. Oropharynx with moist mucosa. Cardiovascular: Regular rate and rhythm with no murmurs, rubs, or gallops appreciated Pulmonary: Clear to auscultation bilaterally with no crackles, wheezes, or rhonchi. Normal respiratory effort with no use of accessory muscles. Abdomen: Bowel tones present. Soft, nontender, nondistended. Extremities: Right lower extremity has significantly larger circumference. Right lower extremity with 2+ pitting edema-which is improving. No edema on left lower extremity. Skin: Large area of erythema and induration on the left gluteal region Psychiatric: Normal mood and affect. Alert and oriented to person, place, and time. IVs and Medications Medications Reviewed: Medications were reviewed in detail Lab and Diagnostics Result Diagram: 04/18/1656 04/18/1656 X-Rays, CTs and MRIs PROCEDURE: X-RAY CHEST ONE VIEW, PORTABLE ([id number]) INDICATIONS: generalized weakness TECHNIQUE: One view of the chest was acquired. COMPARISON: [facility], CT, CT SHOULDER RT WO CON, 10/10/2014, 13: 05. [facility], CR, XR CHEST 1VW (PORTABLE), 12/21/2015, 10:50. [facility], CR, XR CHEST 1VW (PORTABLE), 12/18/2015, 15:08. FINDINGS: Surgical changes and devices: None. Lungs and pleura: No pleural effusions or pneumothorax. Lungs are clear. Mediastinum: Mediastinal contours appear normal. Heart size is normal. Bones and chest wall: No suspicious bony lesions. Note is made of persistent laxity of the ligaments of the right shoulder with what likely is a anterior medial subluxation but conceivably could be a chronic anterior medial subcoracoid dislocation. Overlying soft tissues appear unremarkable. IMPRESSION: A prior CT has shown a medial glenoid margin fracture dislocation, at the right shoulder and the current study again shows unusually prominent medial deviation of the humeral head, position beneath the coracoid process. 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 A source of generalized weakness is not seen. Dictated by: Jose R Butt M.D. on 04/16/2016 at 11:22 Approved by: Jose R Butt M.D. on 04/16/2016 at 11:24 PROCEDURE: CT PELVIS WITH CONTRAST ([id number]) INDICATIONS: left gluteal abscess TECHNIQUE: After the administration of intravenous contrast, 5 mm thick sections acquired from the iliac crests to the symphysis. 5 mm coronal and sagittal reformats were acquired. For radiation dose reduction, the following was used: automated exposure control, adjustment of mA and/or kV according to patient size. COMPARISON: [facility], CT, CT HIP RT WO CON, 12/18/2015, 11:43. [facility], CR, XR PELVIS W LATERAL HIP RT, 12/30/2015, 14:25. FINDINGS: Image quality: Excellent. Peritoneum and bowel: Bowel loops demonstrate normal wall thickness and caliber. No free fluid or air. Genitourinary: Bladder wall thickness is normal. Nodes and vessels: No iliac, pelvic, or inguinal adenopathy by size criteria. Iliac vessels demonstrate normal size and enhancement. Bones: No suspicious bony lesions that would indicate presence of osteomyelitis. Miscellaneous: No inguinal hernias. There is a left paramedian area prominent inflammation measuring approximately 5 cm in maximal transverse dimension, containing internal gas bubbles, but extending almost to the skin surface, dorsal to the lower third of the left sacrum. The appearance may represent a manifestation of decubitus ulceration, or there may be a draining abscess extending to the skin surface. No rim enhancing drainable fluid collection is seen in this area, however. Moderate edema extends within the fatty soft tissues of the midline and left paramedian posterior elsewhere, contiguously. IMPRESSION: Prominent midline and left paramedian fatty soft tissue edema, and inflammatory response over a 5 cm diameter area dorsal to the lower third of the left sacrum, containing gas bubbles extending almost to the skin surface. Please correlate for presence of a draining sinus in this area. Definite CT evidence of osteomyelitis is not found but MR scanning may be warranted with contrast enhancement to assess for extension of infection into the osseous elements of the left sacrum and pelvis. Dictated by: Jose R Butt M.D. on 04/16/2016 at 13:11 Approved by: Jose R Butt M.D. on 04/16/2016 at 13:14 PROCEDURE: US VEINOUS LEG DUPLEX UNILATERAL, RIGHT INDICATIONS: 80 year-old female with new onset of right leg swelling. TECHNIQUE: Real-time imaging, as well as color and pulse Doppler interrogation, were performed of the lower extremity deep veins from the inguinal ligament to the popliteal fossa. COMPARISON: None. FINDINGS: There is noncompressible echogenic occlusive thrombus involving the midportion of the superficial femoral vein, extending into the superior portion is well. There is additional echogenic thrombus within the popliteal vein, as well as portions of the posterior tibial vein. The common femoral vein is normally compressible, and free of intraluminal thrombus. There is absent augmentation response to distal compression maneuver. IMPRESSION: Extensive deep venous thrombosis involving the superficial femoral vein, popliteal vein, and posterior tibial vein. Dictated by: Tavo Edwards M.D. on 04/16/2016 at 17:39 Approved by: Tavo Edwards M.D. on 04/16/2016 at 17:42 Assessment & Plan Acute cellulitis on left gluteal region, present on admission, ongoing -CT of pelvis demonstrates"Prominent midline and left paramedian fatty soft tissue edema, and inflammatory response over a 5 cm diameter area dorsal to the lower third of the left sacrum, containing gas bubbles extending almost to the skin surface" -Surgery was consulted, and do not feel surgery is warranted at this time -ID was also consulted and we appreciate Dr Pascual's input--Current abx include ceftriaxone,flagyl. -IVF decreased to 60mls/hr -Wound culture- no growth to date -Blood cultures no growth to date -MRSA screen negative -Daily labs with CRP tomorrow. -Wound care seeing patient -Will switch to PO Keflex and Flagyl tomorrow Acute right leg DVT, present on admission, ongoing -US of right leg demonstrating "Extensive deep venous thrombosis involving the superficial femoral vein, popliteal vein, and posterior tibial vein." -Likely secondary to patient being sedentary due to her generalized fatigue -Heparin protocol in place -Continue to monitor -Coumadin to be managed by pharmacy -INR today is 1.07 Urine culture positive for Aerococcus urinae, acute, ongoing -Spoke with Dr Pascual of ID, who states that if pt is asymptomatic, it is not necessary to treat this specific pathogen -Pt is currently asymptomatic -No additional abx initiated today. Generalized weakness, improving -Unclear etiology currently -It is possible that recent hospitalization and current infection and dvt are causing the weakness. -Physical therapy to work with patient, they are currently recommending DC to SNF( [facility] if possible) Elevated troponin, acuity unknown ,resolved -Pt had elevated troponin in ER -Trending troponin q 6 hours, which has now normalized. -Unclear etiology. Pt denies any chest pain or pressure -Pt is on telemetry, continue to monitor Acute hypokalemia, not present on admission,resolved -Pt had decreased K level -IV KCl 40 given on 04/17 -Monitor and replenish as needed Diabetes mellitus diet controlled -Will monitor blood sugars -No correctional insulin ordered at this time, if pt has uncontrolled blood sugars, which is possible in the setting of infection, will start correction low dose insulin -Diabetic diet Chronic hypertension -Currently pt is normotensive -No home medications reported by patient for htn -Will continue to monitor CODE STATUS: compressions and cardioversion ok, no intubation. Resuscitation Status: Limited Interventions Limited Interventions: Compressions, Cardioversion/Defibrillation Attending Statement The patient was seen and examined together with Dr. Mello on 04/18/2016 and I agree with the history, exam and plan as outlined in the note above. Tawanna Mello DO Apr 18, 2016 15:18 Sonny Ricardo MD Apr 19, 2016 12:16
--- NOTE | 2016-04-18 18:17 | NUR ---
Dressing Change Patient's dressing was visibly soiled with yellowish drainage. Wound was rinsed with NS and packed with iodoform packing. It was covered with a small Mepilex dressing. Patient reported no pain during the dressing change. Wound opening and surrounding area has no erythema or s/s of infection.
[2016-04-18] MEDS: Heparin 25K Unit/500mL 0.45 NS 25,000 UNIT in IV Premix 1 EACH IV SCH (20:59)
[2016-04-19] VITALS (9 sets, daily range): BP systolic 133–186; BP diastolic 57–90; PULSE 51–89; RESP 18; O2SAT 93–97
--- NOTE | 2016-04-19 05:51 | NUR ---
Heparin gtt/leg pain Patients heparin gtt infusing at 16units/kg/hr. patients PTT has been therapeuticx2 next draw in AM. no s/s of bleeding. stool occult pending. patient c/o leg pains that she has at home as well unrelieved by norco. patient given warm blanket per request and reports improvement from leg cramps. will continue to monitor.
[2016-04-19] MEDS: 0.9% Sodium Chloride 1,000 ML IV SCH (06:00)
[2016-04-19 06:57] LABS: INR 1.33 ratio
--- NOTE | 2016-04-19 07:25 | NUR ---
Heparin gtt PTT result this AM at 0655 was 86.0. Per DVT protocol, decrease gtt by 1 unit/hr. Currently running at 16u/hr. Heparin gtt decreased to 15u/hr (20.4ml/hr). Next draw in 6 hours which will be noon. Heparin gtt double checked with ARIAN Cullen.
--- NOTE | 2016-04-19 07:33 | PCM.PHAPRO ---
Progress Generalized weakness and left gluteal abscess [facility] RTM RTM 10-b 11-b 12-b 1.10 1.07 1.33 -0.03 0.26 5 mg 5 MG 5 MG Scottie Dahl Apr 19, 2016 07:32
[2016-04-19] MEDS ORDERED: Vancomycin Serum Trough XX ONE (08:00)
[2016-04-19] MEDS: cefTRIAXone Inj 2,000 MG in Dextrose 5% Minibag Plus 50 ML IV SCH (08:05)
[2016-04-19] MEDS: predniSONE 1 mg Tablet PO SCH (08:06)
[2016-04-19] MEDS: predniSONE 5 mg Tablet PO SCH (08:06)
[2016-04-19] MEDS: HYDROcodone-APAP 5-325 mg Tablet PO PRN ×3 (08:08→21:11)
--- NOTE | 2016-04-19 08:45 | NUR ---
[facility] Signed
[2016-04-19] MEDS ORDERED: 0.9% Sodium Chloride 250 ML ONE (09:18)
--- NOTE | 2016-04-19 12:10 | NUR ---
dc Heparin gtt ordered Heparin gtt to be dc'd, change to Lovenox SQ inj. Heparin gtt dc'd at 1210.
[2016-04-19 13:43] LABS: BASOPHILS % (AUTO) 0.3 % (0-3); EOSINOPHILS % (AUTO) 1.9 % (0-5); MONOCYTES % (AUTO) 5.3 % (4-12); Mean Corpuscular Hemoglobin 27.2 pg (27.0-35.0); Mean Corpuscular Volume 90.2 fL (81-100); NEUTROPHILS % (AUTO) 76.5 % (40-74); Platelet Count 284 bil/L (150-400)
--- NOTE | 2016-04-19 15:19 | NUR ---
Social Work: Readiness for Discharge D: Pt discussed in am rounds. Pt is not medically stable for discharge at this time but may be ready in 1-2 days. Pt is from [facility] and is primarily w/c bound but I with transfers. Pt has been working with PT during admission. Pt currently requiring 2 person total assist for transfers to a chair with recommendation for SNF via cabulance. EMPLOYMENT ADJUDICATOR received t/c from Mirella at [facility] who states they can accept the pt with either pt's PCP Dr. Ventura or Dr. Pace to follow. They will update EMPLOYMENT ADJUDICATOR on Wednesday re: final plan for following physician. PPW and PASSR completed and on chart. A: Pt who currently requiring 2PA for transfers to chair. P: Anticipate pt to discharge to SNF when medically stable; [facility] has accepted with either Dr. Pace or Dr. Ventura to follow. EMPLOYMENT ADJUDICATOR to continue to follow and assist with discharge plan. FARRUKH [place]
--- NOTE | 2016-04-19 17:06 | PCM.PNMED ---
Subjective Date of Service Apr 19, 2016 Subjective Overnight: The patient reportedly cramping overnight otherwise there were no acute events. Telemetry overnight was sinus rhythm, heart rate 70 to 80s, first degree AV block with occasional PVC pairs and frequent PACs. The patient is resting in bed comfortably and in no acute distress. She has no complaints other than that is uncomfortable. She denies headache, shortness of breath, chest pain, abdominal pain, nausea, vomiting, fever, chills, gluteal pain, dysuria, diarrhea or constipation. She is voiding and eliminating without difficulty. She is up with assistance but unable to ambulate. Exam Vital Signs Vital Sign - Last Date Time Temp Pulse Resp B/P Pulse Ox O2 Delivery O2 Flow Rate FiO2 04/19/16 14:28 36.7 88 18 135/70 97 Room Air Intake and Output 04/18/16 04/18/16 04/19/16 Cumulative From/Thru 15:00 23:00 07:00 04/16/16 10:06 - 04/19/16 05:56 Intake Total 1494 ml 100 ml 4194 ml Output Total 1186 ml 1175 ml 4636 ml Balance 308 ml -1075 ml -442 ml Intake Oral 636 ml 100 ml 1336 ml IV Total 858 ml 2858 ml Output Urine Total 1186 ml 1175 ml 4636 ml # Voids 5 # Bowel Movements 1 1 Exam General: Frail elderly female. No acute distress, appropriately interactive HEENT: Normocephalic, atraumatic. External ears without defect. Anicteric sclerae, moist conjunctivae. Oropharynx with moist mucosa. Cardiovascular: Regular rate and rhythm with no murmurs, rubs, or gallops appreciated Pulmonary: Clear to auscultation bilaterally with no crackles, wheezes, or rhonchi. Normal respiratory effort with no use of accessory muscles. Abdomen: Soft, nontender, nondistended, bowel sounds present. Extremities: Right lower extremity has significantly larger circumference. Right lower extremity with trace pitting edema to the pretibial area, improving. No edema on left lower extremity. Skin: Large area of erythema and induration on the left gluteal region. Psychiatric: Normal mood and affect. Alert and oriented to person, place, and time. . IVs and Medications Medications Reviewed: Medications were reviewed in detail Lab and Diagnostics Item Value Date Time Calcium Level 8.4 mg/dL L 04/19/16 1325 C-Reactive Protein 4.3 mg/dL H 04/19/16 1325 Procalcitonin 0.34 ng/mL H 04/19/16 1325 Result Diagram: 04/19/16 1325 04/19/16 1325 Microbiology Blood cultures x2 show no growth after 2 days. Urine culture grew Aerococcus urinae. MRSA screen negative. Gram stain of buttock had few PMNs and rare gram-negative rods and culture had insufficient growth. Stool occult blood positive. . X-Rays, CTs and MRIs X-RAY CHEST ONE VIEW, PORTABLE IMPRESSION: A prior CT has shown a medial glenoid margin fracture dislocation, at the right shoulder and the current study again shows unusually prominent medial deviation of the humeral head, position beneath the coracoid process. 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 A source of generalized weakness is not seen. Dictated by: Jose R Butt M.D. on 04/16/2016 at 11:22 Approved by: Jose R Butt M.D. on 04/16/2016 at 11:24 CT PELVIS WITH CONTRAST IMPRESSION: Prominent midline and left paramedian fatty soft tissue edema, and inflammatory response over a 5 cm diameter area dorsal to the lower third of the left sacrum, containing gas bubbles extending almost to the skin surface. Please correlate for presence of a draining sinus in this area. Definite CT evidence of osteomyelitis is not found but MR scanning may be warranted with contrast enhancement to assess for extension of infection into the osseous elements of the left sacrum and pelvis. Dictated by: Jose R Butt M.D. on 04/16/2016 at 13:11 Approved by: Jose R Butt M.D. on 04/16/2016 at 13:14 VEINOUS LEG DUPLEX UNILATERAL, RIGHT IMPRESSION: Extensive deep venous thrombosis involving the superficial femoral vein, popliteal vein, and posterior tibial vein. Dictated by: Tavo Edwards M.D. on 04/16/2016 at 17:39 Approved by: Tavo Edwards M.D. on 04/16/2016 at 17:42 . Assessment & Plan Earnestine Ga is an 80-year-old female with past medical history significant for hypertension and diabetes mellitus type II, non-insulin using, who presented to [facility] Emergency Department for complaining of generalized weakness and was admitted for right leg DVT and gluteal abscess. Hospital day # 4. Acute gluteal abscess, present on admission. Active. - CT of pelvis demonstrates"Prominent midline and left paramedian fatty soft tissue edema, and inflammatory response over a 5 cm diameter area dorsal to the lower third of the left sacrum, containing gas bubbles extending almost to the skin surface" - Surgery was consulted, and do not feel surgery is warranted at this time - ID was also consulted and we appreciate Dr Pascual's input--Current abx include ceftriaxone,flagyl. - IVF decreased to 60mls/hr. - Wound culture has insufficient growth and was re-incubated, as above. - Blood cultures no growth to date. - MRSA screen negative. - Daily labs with CRP tomorrow. - Wound care consulted and following patient. - Switched to PO Keflex and Flagyl. Acute right leg DVT, present on admission. Active. -US of right leg demonstrating "Extensive deep venous thrombosis involving the superficial femoral vein, popliteal vein, and posterior tibial vein." -Likely secondary to patient being sedentary due to her generalized fatigue -Heparin protocol in place -Continue to monitor -Coumadin to be managed by pharmacy -INR today is 1.07 Urine culture positive for Aerococcus urinae, acute, present on admission. 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 - Spoke with Dr Pascual of ID, who states that if pt is asymptomatic, it is not necessary to treat this specific pathogen. Generalized weakness, acuity unknown, present on admission. Improving - Unclear etiology currently - It is possible that recent hospitalization and current infection and dvt are causing the weakness. - Physical therapy to work with patient, they are currently recommending DC to SNF( [facility] if possible) Elevated troponin, acuity unknown. Resolved. - Troponin elevated upon admission. - Trended troponin q 6 hours, which has now normalized. - Unclear etiology. Pt denies any chest pain or pressure. - Continue to monitor on telemetry. Acute hypokalemia, not present on admission. Resolved. - Received KCl 40 mg IV x1 on 04/17/2016. - Monitor and replenish as needed. Diabetes mellitus type II, non-insulin using, chronic. - Hemoglobin A1c 5.4% on 12/2015. - Will monitor blood sugars daily. - No correctional insulin ordered at this time, if pt has uncontrolled blood sugars, which is possible in the setting of infection, will start correction low dose insulin - Continue carbohydrate consistent diet. Hypertension, chronic. - Not medically treated. - Will continue to monitor closely. CODE STATUS: compressions and cardioversion ok, no intubation. Disposition: Likely to discharge in 1-2 days to [facility] facility depending on clinical course. . Resuscitation Status: Limited Interventions Limited Interventions: Compressions, Cardioversion/Defibrillation Attending Statement The patient was seen and examined together with Dr. Tao on 04/19/2016 and I agree with the history, exam and plan as outlined in the note above. Stormy Tao DO Apr 19, 2016 17:06 Sonny Ricardo MD Apr 20, 2016 13:11
--- NOTE | 2016-04-19 18:22 | NUR ---
Activity/drsg Pt sat up for dinner in chair at bedside for 45 minutes then transferred to [facility] with 2 person max assist. Pt tolerated activity well, denied any dizziness with change in position. Drsg to Mitzi glut changed this afternoon per order, pt tolerated well. Currently resting, bed in lowest, locked position and call light in reach.
[2016-04-20 00:49] VITALS: BP 139/76; PULSE 74; RESP 18; O2SAT 95
[2016-04-20] MEDS: 0.9% Sodium Chloride 1,000 ML IV SCH (00:55)
[2016-04-20 05:23] VITALS: BP 169/81; PULSE 98; RESP 18; O2SAT 95
[2016-04-20 05:58] VITALS: PULSE 78
--- NOTE | 2016-04-20 06:26 | NUR ---
Ambulation Encouragement Patient was encouraged by FURNACE TAPPER on at least two separate occasions to ambulate to bedside commode when needing to void. Patient declined both times. Assisted FURNACE TAPPER with placing bedpan. Patient stated that she was in too much pain to get up out of bed. Patient would benefit from continued frequent encouragement to ambulate.
[2016-04-20 06:55] LABS: INR 1.62 ratio
[2016-04-20 06:59] LABS: BASOPHILS % (AUTO) 0.4 % (0-3); MONOCYTES % (AUTO) 7.3 % (4-12); Mean Corpuscular Hemoglobin 27.1 pg (27.0-35.0); Mean Corpuscular Volume 91.4 fL (81-100); NEUTROPHILS % (AUTO) 56.6 % (40-74); Platelet Count 308 bil/L (150-400)
[2016-04-20 09:27] VITALS: BP 187/82; PULSE 100; RESP 26; O2SAT 93
[2016-04-20] MEDS: predniSONE 1 mg Tablet PO SCH (09:42)
[2016-04-20] MEDS: predniSONE 5 mg Tablet PO SCH (09:42)
[2016-04-20] MEDS: HYDROcodone-APAP 5-325 mg Tablet PO PRN (10:05)
--- NOTE | 2016-04-20 10:25 | NUR ---
Called and spoke with Mirella Loyola at [facility] and confirmed bed for this afternoon. Mirella will be able to accept patient around 1500. Updated CLINICAL CYTOGENETICIST SCIENTIST Addendum: 04/20/16 at 1347 by NOEMÍ VELASQUEZ CM Care E is coming at 1530 and Mirella from admissions at [facility] arranged this. Updated CLINICAL CYTOGENETICIST SCIENTIST
--- NOTE | 2016-04-20 11:11 | NUR ---
Wound Care Pt seen at bedside for re-evaluation of left buttock abscess. Wound remains open and continues to drain a bains fluid. The opening of the wound is unchanged but the depth is decreased, now 3 cms versus 5 cm's last week. Wound was cleaned with sterile Q tip then repacked with a wick of 1/4" iodoform gauze then covered with dry gauze and an adhesive foam dressing. Pt tolerated dressing change well and wound is slightly improved and without sign or symptom of infection. Nursing to continue dressing changes daily.
[2016-04-20 11:40] VITALS: PULSE 90
[2016-04-20] MEDS ORDERED: Warfarin per Pharmacist PO (12:48)
[2016-04-20] MEDS ORDERED: AMOX-366 PO (12:48)
[2016-04-20] MEDS ORDERED: LOV60 SUBQ (12:48)
--- NOTE | 2016-04-20 12:54 | PCM.DIMED ---
Tawanna Mello DO 04/20/16 1254: Discharge Instructions Date of Service Apr 20, 2016 Dates of Hospitalization Apr 16, 2016 at 15:17 Discharge Diagnosis Discharge Diagnosis Acute cellulitis on left gluteal region, present on admission, ongoing Acute right leg DVT, present on admission, ongoing Urine culture positive for Aerococcus urinae, acute, ongoing Generalized weakness, improving Elevated troponin, acuity unknown ,resolved Acute hypokalemia, not present on admission,resolved Diabetes mellitus diet controlled Chronic hypertension Medication Instructions We are sending you to [facility] with a prescription for 7 days of Augmentin, this will complete 10days of antibiotic treatments. We are also sending you home on Lovenox and Coumadin, this will need to be followed up regularly at [facility]. You may continue with all your other home medications. Diet No restrictions Activity No restrictions Call your provider Fever or Chills, Shortness of breath, Bleeding, Chest pain, Vomitting, Excessive diarrhea, Weakness (unilateral) Patient Instructions You are being discharged to [facility] We recommend that you follow up with your primary care doctor, Dr Ventura, and let him know about your hospitalization. Follow-up Provider: Louise Pace MD Follow-up with PCP in: Other (Accepting physician) Provider: Giovanny Ventura MD Follow-up in: 1 week Sonny Ricardo MD 04/21/16 1419: Tawanna Mello DO Apr 20, 2016 12:54 Sonny Ricardo MD Apr 21, 2016 14:19
[2016-04-20 13:16] VITALS: BP 138/72; PULSE 76; RESP 18; O2SAT 93
--- NOTE | 2016-04-20 13:24 | NUR ---
Social Work Discharge: SW met with patient at bedside to discuss discharge plan. Plan is SNF placement at [facility]. Patient states being in agreement. SW spoke to admissions rep at [facility] who states that patient accepted and transport for bead picker at 3pm. SW faxed scripts and discharge prescriptions to facility. UR specialist coordinated chart copy. No other needs identified at this time. SW to follow. PLAN: Transfer to [facility], pending clinical course. Transport for bead picker at 3pm today Megan CHADWICK
--- NOTE | 2016-04-20 14:20 | PCM.PHAPRO ---
Progress Date of Service: Apr 20, 2016 ANTICOAGULATION MANAGEMENT BY PHARMACY -INDICATION: DVT -HOME DOSE: NEW START -CONCURRENT ANTICOAGULATION: LOVENOX 60 MG BID -CRCL: 41 ML/MIN -COAG TRENDS: -Apr 19-Apr 20-Apr 1.07 1.33 1.62 -0.03 0.26 0.29 5 MG 5 MG 5 MG -[id number] SCORE: 5 PLAN: Patient TO BE D/C TODAY AT 5 MG DOSE. OT DOSE ORDERED FOR TONIGHT IF SHE IS STILL HERE Pharmacy appreciates consult and will continue to monitor. THANKS! Nydia Mary PharmD Apr 20, 2016 14:20
--- NOTE | 2016-04-20 15:47 | NUR ---
Discharge IV DCd intact, Tele removed, all belongings with pt. No s/sx of distress. Body sheet filled out. Report called to LANE DON at [facility]. [facility] transport picked up pt w/ WC at 1547, transporting to [facility].
--- NOTE | 2016-04-20 22:37 | PCM.DC.MED ---
Discharge Summary Date of Service Apr 20, 2016 Dates of Hospitalization Date of Hospital Admission Apr 16, 2016 at 15:17 Date of Discharge: Apr 20, 2016 Providers: Admitting Physician: Sonny iRcardo MD Primary Care Physician: Giovanny Ventura MD Attending Physician: Sonny Ricardo MD Diagnosis at Time of Discharge Diagnosis at Time of Discharge Acute cellulitis on left gluteal region, present on admission, ongoing Acute right leg DVT, present on admission, ongoing Urine culture positive for Aerococcus urinae, acute, ongoing Generalized weakness, improving Elevated troponin, acuity unknown ,resolved Acute hypokalemia, not present on admission,resolved Diabetes mellitus diet controlled Chronic hypertension Consultations Infectious disease Wound care Surgery Procedures XRay, CTs & MRIs X-RAY CHEST ONE VIEW, PORTABLE IMPRESSION: A prior CT has shown a medial glenoid margin fracture dislocation, at the right shoulder and the current study again shows unusually prominent medial deviation of the humeral head, position beneath the coracoid process. 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 A source of generalized weakness is not seen. Dictated by: Jose R Butt M.D. on 04/16/2016 at 11:22 Approved by: Jose R Butt M.D. on 04/16/2016 at 11:24 CT PELVIS WITH CONTRAST IMPRESSION: Prominent midline and left paramedian fatty soft tissue edema, and inflammatory response over a 5 cm diameter area dorsal to the lower third of the left sacrum, containing gas bubbles extending almost to the skin surface. Please correlate for presence of a draining sinus in this area. Definite CT evidence of osteomyelitis is not found but MR scanning may be warranted with contrast enhancement to assess for extension of infection into the osseous elements of the left sacrum and pelvis. Dictated by: Jose R Butt M.D. on 04/16/2016 at 13:11 Approved by: Jose R Butt M.D. on 04/16/2016 at 13:14 VEINOUS LEG DUPLEX UNILATERAL, RIGHT IMPRESSION: Extensive deep venous thrombosis involving the superficial femoral vein, popliteal vein, and posterior tibial vein. Dictated by: Tavo Edwards M.D. on 04/16/2016 at 17:39 Approved by: Tavo Edwards M.D. on 04/16/2016 at 17:42 . Brief History 80 yr old female with history of diabetes mellitus that is diet controlled and hypertension presents to the hospital with complaint of generalized weakness and concern regarding gluteal abscess. Pt reports that her weakness began about 1 month ago. She states that her strength comes and goes, but over the past few days she reports that she has become increasingly weak, to the point where she is unable to stand on her own, something she was able to do previously. Patient reports that she has been lying in bed, and has been too tired to do much else. Regarding her abscess, pt reports that it appeared after she was discharged home from [facility] in February. Pt reports that it began as a small painful lump, and then began increasing in size. She states that she following up with her PCP who used a needle to drain the area. She states that soon after, the area continued to get larger, and which point her PCP cut into the area. She is unsure if there was any purulent discharge at the time of incision. Pt reports that the area began becoming more painful, and yesterday was seen again by her PCP, and a larger incision was made and a drain placed. Pt reports that she has not been prescribed any antibiotics for this wound. Pt reports that she became concerned when she began to have a fever of 99.7. Pt reports that she has been experiencing chills, diaphoresis and worsening fatigue. Patient denies any nausea, and vomiting, but does report diarrhea. Pt also reports that the wound is becoming increasingly more painful with significant amount of drainage. Patient reports that she has never had an abscess in the past. In the ER, pt was afebrile and hemodynamically stable. Labs demonstrated elevated WBC of 13.1, Lactic acid of 1.5, troponin of 0.014, procalcitonin 0.14. Blood cultures drawn. Patient is admitted under inpatient status with expected length of stay greater than 2 midnights due to severity of presenting symptoms, risk of adverse event, and complexity of treatment plan. Hospital Course Earnestine Ga is an 80-year-old female with past medical history significant for hypertension and diabetes mellitus type II, non-insulin using, who presented to [facility] Emergency Department for complaining of generalized weakness and was admitted for right leg DVT and gluteal abscess. Acute gluteal abscess, present on admission. Active. - CT of pelvis demonstrates"Prominent midline and left paramedian fatty soft tissue edema, and inflammatory response over a 5 cm diameter area dorsal to the lower third of the left sacrum, containing gas bubbles extending almost to the skin surface" - Surgery was consulted, and do not feel surgery was warranted. - ID was also consulted and we appreciate Dr Pascual's input--Current abx include ceftriaxone,flagyl. - Blood cultures no growth to date. - MRSA screen negative. - Discharged on Augmenting for course of [address] days of antibiotics per Dr Pascual Acute right leg DVT, present on admission. Active. -US of right leg demonstrating "Extensive deep venous thrombosis involving the superficial femoral vein, popliteal vein, and posterior tibial vein." -Likely secondary to patient being sedentary due to her generalized fatigue -Coumadin to be monitored Urine culture positive for Aerococcus urinae, acute, present on admission. 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 - Spoke with Dr Pascual of ID, who states that if pt is asymptomatic, it is not necessary to treat this specific pathogen. Generalized weakness, acuity unknown, present on admission. Improving - Unclear etiology currently - It is possible that recent hospitalization and current infection and dvt are causing the weakness. Elevated troponin, acuity unknown. Resolved. - Troponin elevated upon admission. - Trended troponin q 6 hours, which normalized. - Unclear etiology. Pt denies any chest pain or pressure. Acute hypokalemia, not present on admission. Resolved. - Received KCl 40 mg IV x1 on 04/17/2016. Diabetes mellitus type II, non-insulin using, chronic. - Hemoglobin A1c 5.4% on 12/2015. Hypertension, chronic. - Not medically treated. CODE STATUS: compressions and cardioversion ok, no intubation. Disposition: Likely to discharge in 1-2 days to intermediate facility depending on clinical course. . Exam Vital Signs (Last) Date Time Temp Pulse Resp B/P Pulse Ox O2 Delivery O2 Flow Rate FiO2 04/20/16 13:16 37.7 76 18 138/72 93 Room Air Exam General: Frail elderly female. No acute distress, appropriately interactive HEENT: Normocephalic, atraumatic. External ears without defect. Anicteric sclerae, moist conjunctivae. Oropharynx with moist mucosa. Cardiovascular: Regular rate and rhythm with no murmurs, rubs, or gallops appreciated Pulmonary: Clear to auscultation bilaterally with no crackles, wheezes, or rhonchi. Normal respiratory effort with no use of accessory muscles. Abdomen: Bowel tones present. Soft, nontender, nondistended. Extremities:Bilateral lower extremities without edema. Edema of right leg has completely resolved. Skin: Large area of erythema and induration on the left gluteal region Psychiatric: Normal mood and affect. Alert and oriented to person, place, and time. Test 04/16/16 10:50 04/16/16 11:29 04/17/16 06:26 04/18/16 02:30 Magnesium Level 1.6mg/dL (1.6-2.6) Urine Color Straw (YELLOW) Urine Appearance Hazy (CLEAR,HAZY) Urine pH 5.5 (5.0-8.0) Urine Specific [place] 1.030 (1.003-1.035) Urine Protein 100mg/dL (NEG,TRACE) Urine Glucose (UA) Negativemg/dL (NEGATIVE) Urine Ketones Negativemg/dL (NEGATIVE) Urine Occult Blood Small (NEGATIVE) Urine Nitrite Negative (NEGATIVE) Urine Bilirubin Negative (NEGATIVE) Urine Urobilinogen Normalmg/dL (NORMAL) Urine Leukocyte Esterase Negative (NEGATIVE) Urine RBC 0-2/hpf (0-2) Urine WBC 0-5/hpf (0-5) Urine Epithelial Cells Occasional/hpf (NONE-MOD) Urine Crystals None seen (NONE SEEN) Urine Bacteria Many/hpf (NONE-FEW) Urine Hyaline Casts None/lpf (NONE) Urine Granular Casts Occasional (NONE SEEN) Urine Waxy Casts None seen (NONE SEEN) Urine Red Blood Cell Casts None seen (NONE SEEN) Urine White Blood Cell Casts None seen (NONE SEEN) Urine Mucus None seen (None Seen) Urine Trichomonas None seen (NONE SEEN) Urine Yeast None (NONE SEEN) Urinalysis Comment None Urine Culture Reflexed Indicated Lactic Acid Level 0.8mmol/L (0.4-2.0) Total Creatine Kinase 33U/L (21-215) Creatine Kinase MB 1.4ng/mL (0.0-5.3) Creatine Kinase MB % % (0.0-5.0) Troponin T 0.010ug/L (0.0-0.011) Test 04/18/16 05:56 04/19/16 05:30 04/19/16 13:25 04/20/16 06:35 Total Bilirubin 0.2mg/dL (0.0-1.2) Aspartate Amino Transf (AST/SGOT) 33U/L (0-50) Alanine Aminotransferase (ALT/SGPT) 8U/L (0-32) Alkaline Phosphatase 100U/L (25-165) Total Protein 4.8g/dL (6.4-8.4) Albumin 3.0g/dL (3.4-5.0) Activated Partial Thromboplast Time 86.0sec (22.8-33.0) Procalcitonin 0.34ng/mL (0.00-0.08) White Blood Count 11.0th/mm3 (3.8-10.1) Red Blood Count 3.73mil/mm3 (3.90-5.20) Hemoglobin 10.1g/dL (12.0-15.6) Hematocrit 34.1% (35.0-46.0) Mean Corpuscular Volume 91.4fL (81-100) Mean Corpuscular Hemoglobin 27.1pg (27.0-35.0) Mean Corpuscular Hemoglobin Concent 29.6% (32.0-37.0) Red Cell Distribution Width 18.4% (12.3-15.4) Platelet Count 308bil/L (150-400) Neutrophils (%) (Auto) 56.6% (40-74) Lymphocytes (%) (Auto) 29.4% (14-46) Monocytes (%) (Auto) 7.3% (4-12) Eosinophils (%) (Auto) 4.0% (0-5) Basophils (%) (Auto) 0.4% (0-3) Prothrombin Time 17.5sec (8.1-12.5) Prothromb Time International Ratio 1.62ratio Sodium Level 141mEq/L (134-144) Potassium Level 3.8mEq/L (3.5-5.2) Chloride Level 102mEq/L (97-108) Carbon Dioxide Level 27mmol/L (18-29) Blood Urea Nitrogen 15mg/dL (8-27) Creatinine 0.92mg/dL (0.57-1.00) Estimat Glomerular Filtration Rate 84mL/min (>59) Glucose Level 92mg/dL (60-99) Calcium Level 8.9mg/dL (8.5-10.1) C-Reactive Protein 3.9mg/dL (0.0-0.5) Microbiology Results Blood cultures x2 show no growth after 2 days. Urine culture grew Aerococcus urinae. MRSA screen negative. Gram stain of buttock had few PMNs and rare gram-negative rods and culture had insufficient growth. Stool occult blood positive. . Discharge Medications Discharge Medications ([Warfarin per Pharmacist]) 5mg EA 1 EA PO DAILY@17 Prescribed by: KIERAN FARRAR DO Allopurinol (Allopurinol) 100 Mg Tablet 150 MG PO DAILY (Reported) Amoxicillin/Clav K 875-125 mg (Augmentin 875-125 mg) 1 Each Tablet 1 TABLET PO BID Prescribed by: KIERAN FARRAR DO Enoxaparin (Lovenox) 60 Mg/0.6 Ml Syringe 60 MG SUBQ BID Prescribed by: KIERAN FARRAR DO Ferrous Sulfate (Iron) 325 Mg Capsule.er 325 MG PO DAILY (Reported) Gabapentin (Gabapentin) 300 Mg Capsule 900 MG PO TID Prescribed by: VALENTINA MÉNDEZ MD PredniSONE (PredniSONE) 1 Mg Tab 1 MG PO QAM (Reported) take along with 5mg tab for a total dose of 6mg daily Prednisone (PredniSONE) 5 Mg Tab 5 MG PO QAM (Reported) take along with 1mg tab for a total dose of 6mg daily As needed Acetaminophen (Acetaminophen) 325 Mg Capsule 325 MG PO Q4H PRN PRN For Pain ( Reported) Hydrocodone-Acetaminophen 5-325 mg (Hydrocodone-Acetaminophen 5-325 mg) 1 Each Tablet 1-2 TABLET PO Q6H PRN PRN For Pain Prescribed by: LIO HONG PA-C Zolpidem (Zolpidem) 5 Mg Tablet 5 MG PO HS PRN PRN Insomnia (Reported) Additional med instructions We are sending you to [facility] with a prescription for 7 days of Augmentin, this will complete 10days of antibiotic treatments. We are also sending you home on Lovenox and Coumadin, this will need to be followed up regularly at [facility]. You may continue with all your other home medications. Followup Plan Disposition: [facility] Discharge Diet: No restrictions Discharge Activity: No restrictions Patient Instructions You are being discharged to [facility] We recommend that you follow up with your primary care doctor, Dr Ventura, and let him know about your hospitalization. Follow-up Provider: Louise Pace MD Follow-up with PCP in: Other (Accepting physician) Provider: Giovanny Ventura MD Follow-up in: 1 week Time spent 35 minutes Attending Statement The patient was seen and examined together with Dr. Farrar on 04/20/2016 and I agree with the history, exam and plan as outlined in the note above. copies to: Giovanny Ventura MD; Louise Pace MD, Tara L DO Apr 20, 2016 22:37 Sonny Ricardo MD Apr 21, 2016 14:20
== END 2016-04-20 15:45 | DRG 603 ==
LOC: SED 10:02 → MPC 15:17 → OBSVTOIN 15:17
PROVIDERS: ADMIT Family Medicine; ATTEND Family Medicine
DX: L03.317 Cellulitis of buttock (principal); I82.411 Acute embolism and thrombosis of right femoral vein; I82.441 Acute embolism and thrombosis of right tibial vein; I82.431 Acute embolism and thrombosis of right popliteal vein; E87.6 Hypokalemia; I10 Essential (primary) hypertension; M19.90 Unspecified osteoarthritis, unspecified site; M35.3 Polymyalgia rheumatica; G62.9 Polyneuropathy, unspecified; E11.9 Type 2 diabetes mellitus without complications; G31.89 Other specified degenerative diseases of nervous system; Z87.440 Personal history of urinary (tract) infections; Z87.891 Personal history of nicotine dependence

== ENCOUNTER 2016-05-28 08:34 | Day surgery (SDC) | payer MEDICARE ==
[~2016-05-28] VITALS: Ht 162.6 cm; Wt 62.0 kg
[2016-05-28] VITALS (7 sets, daily range): BP systolic 107–121; BP diastolic 56–66; PULSE 56–71; RESP 16; O2SAT 97–99
[~2016-05-28 08:34] MED LIST changes: +ACET325C PO; +AMOX-366 PO; -CIPR-231 PO; +FERR325C PO; +LOV60 SUBQ; +Warfarin per Pharmacist PO
[2016-05-28] MEDS ORDERED: HYDR12.5 PO (09:45)
[2016-05-28] MEDS ORDERED: diphenhydrAMINE 25 mg Capsule PO ONE (10:10)
[2016-05-28] MEDS ORDERED: 0.9% Sodium Chloride 250 ML ONE ×2 (10:11→13:15)
[2016-05-28] MEDS: Furosemide 10 mg/mL 2 mL Inj IV PRN ×2 (13:30→17:00)
--- NOTE | 2016-05-28 18:06 | NUR ---
PRBC pt arrived/departed MOC via stretcher; 2-p max assist/transfer family at bedside throughout stay tolerated 2 units prbc without adverse s/s; vss throughout post h/h improved report returned to primary nurse at [facility] summary of care and lab results sent with pt to SNF
== END 2016-05-28 23:59 | disposition home or self-care (01) ==
LOC: MOCO 08:34
PROVIDERS: ATTEND Internal Medicine
DX: D64.9 Anemia, unspecified (principal)
CPT/HCPCS: 36415; 36430; 85014; 85018; 86922; J1940; J7050; P9021

== ENCOUNTER 2016-09-09 10:30 | Day surgery (SDC) | payer MEDICARE ==
[~2016-09-09] VITALS: Ht 162.6 cm; Wt 61.2 kg
[2016-09-09] VITALS (9 sets, daily range): BP systolic 118–171; BP diastolic 34–100; PULSE 52–66; RESP 11–29; O2SAT 93–100
[~2016-09-09 10:30] MED LIST changes: -ACET325C PO; -AMOX-366 PO; +Clindamycin 900 mg/50 mL D5W IV ONE; +FERR-83 PO; -FERR325C PO; +HYDR-656 PO; +IPRA3AMP IH; -LOV60 SUBQ; -PRD1T PO; +WARF5TAB7 PO; -Warfarin per Pharmacist PO
[2016-09-09] MEDS ORDERED: Ondansetron 2 mg/mL 2 mL Inj ONE (10:31)
[2016-09-09] MEDS ORDERED: Propofol 10,000 mCg/mL 20 mL Inj ONE (10:31)
[2016-09-09] MEDS ORDERED: Ketamine 10 mg/mL 20 mL Inj ONE (10:31)
[2016-09-09] MEDS: Lactated Ringer's 1,000 ML IV SCH ×2 (11:38→14:15)
[2016-09-09] MEDS ORDERED: Clindamycin 900 mg/50 mL D5W Premix IV ONE (11:40)
[2016-09-09] MEDS ORDERED: Lactated Ringer's 1,000 ML IV SCH (14:53)
[2016-09-09] MEDS ORDERED: Lactated Ringer's 500 ML IV PRN (14:53)
[2016-09-09] MEDS ORDERED: Phenylephrine 10,000 mCg/mL Inj IVPUSH PRN (14:55)
[2016-09-09] MEDS ORDERED: fentaNYL-PF 50 mCg/mL 2 mL Inj IVPUSH PRN (14:55)
[2016-09-09] MEDS ORDERED: HYDROmorphone 1 mg/mL Inj IVPUSH PRN (14:55)
[2016-09-09] MEDS ORDERED: MetoCLOpramide 5 mg/mL 2 mL Inj IVPUSH PRN (14:55)
[2016-09-09] MEDS ORDERED: Ondansetron 2 mg/mL 2 mL Inj IVPUSH PRN (14:55)
[2016-09-09] MEDS ORDERED: Dexamethasone 4 mg/mL Inj IVPUSH PRN (14:55)
[2016-09-09] MEDS ORDERED: EPHEDrine Sulfate 50 mg/mL Inj IVPUSH PRN (14:55)
[2016-09-09] MEDS ORDERED: HYDROcodone-APAP 10-325 mg PO PRN (15:40)
--- NOTE | 2016-09-09 17:34 | PCM.HPANE ---
Patient Data Surgeon Admitting Provider: Attending Provider:Torrey Chatman MD Primary Care Physician:Giovanny Ventura MD Other Provider:Paola Toledoingham Anesthesia Reason for Visit Left Buttock Wound Ht/WT & BMI Height (Feet): 5 Height (Inches): 4.00 Weight (Kilograms): 61.230 Body Mass Index 23.00 Allergies Coded Allergies: pseudoephedrine (Verified Allergy, Intermediate, Rash, 04/16/16) Past Anesthesia History Anesthesia History: Denies:: Abnormal Airway, Anesthesia Reactions, Difficult Intubation Diabetes History Hx Diabetes?: No MRSA MRSA: No Medications Blood Thinner: Coumadin Hypertension Medication: No Home Meds Incl Beta Jennie: No Reported Medications Zolpidem 5 Mg Tablet5 Mg PO HS PRN For Insomnia Ref 0 09/03/16 Warfarin Sodium 5 Mg Tablet4.5 Mg PO DAILY 30 Days Ref 0 09/03/16 Prednisone (PredniSONE)5 Mg Tab6 Mg PO DAILY Ref 0 09/03/16 Ipratropium/Albuterol Sulfate (Iprat-Albut 0.5-3(2.5) mg/3 mL Inhalant Soln)3 Ml Ampul.neb3 Ml IH QID Ref 0 09/03/16 hydrOXYzine Hcl (HydrOXYzine Hcl)25 Mg Fzxxhe12 Mg PO TID PRN For Nausea Ref 0 09/03/16 Hydrocodone-Acetaminophen 5-325 mg 1 Each Tablet1 Tablet PO Q4H PRN For Pain Ref 0 09/03/16 Gabapentin 300 Mg Fftkptr221 Mg PO TID Ref 0 09/03/16 Ferrous Sulfate 325 Mg Ebbwqw381 Mg PO DAILY 30 Days Ref 0 09/03/16 Allopurinol 100 Mg Byjjho401 Mg PO DAILY Ref 0 09/03/16 Discontinued Reported Medications Hydrochlorothiazide 12.5 Mg Uhgaboz76.5 Mg PO DAILY 30 Days Ref 0 05/28/16 Acetaminophen 325 Mg Crqninx107 Mg PO Q4H PRN For Pain 04/16/16 Ferrous Sulfate (Iron)325 Mg Capsule.er325 Mg PO DAILY 04/16/16 PredniSONE 1 Mg Tab1 Mg PO QAM take along with 5mg tab for a total dose of 6mg daily 12/18/15 Zolpidem 5 Mg Tablet5 Mg PO HS PRN Insomnia 08/30/15 Allopurinol 100 Mg Viaviw506 Mg PO DAILY 08/29/15 Prednisone (PredniSONE)5 Mg Tab5 Mg PO QAM take along with 1mg tab for a total dose of 6mg daily 08/29/15 Discontinued Scripts [Warfarin per Pharmacist] (Coumadin Dosing per Pharmacist)5mg EA No Conflict Check1 Ea PO DAILY@17 #30 TABLET Prov:Tawanna Mello 04/20/16 Hydrocodone-Acetaminophen 5-325 mg 1 Each Tablet1-2 Tablet PO Q6H PRN For Pain # 30 TABLET Ref 0 Prov:Jay Martin PA-C 12/20/15 Gabapentin 300 Mg Dupnwyr883 Mg PO TID 7 Days Prov:Vincent Rosenberg 12/19/15 History History of ENT Problems?: Yes HEENT History: Positive for:: Cataracts Denies:: Abnormal Airway Difficult Intubation Dysphagia Sinus Problem Denture Type: None Teeth Condition: Within Normal Limits Hx of Heart Problems?: Yes Cardiovascular History: Positive for:: Edema Hypertension Irregular Heartbeat (a-fib) Thrombophlebitis (hx of DVT right leg 04/2016) Denies:: Cardiac Surgery Chest Pain Congestive Heart Failure Heart Murmur Pacemaker Hx of Respiratory Problem?: Yes Respiratory History: Positive for:: Pneumonia Denies:: Asthma COPD Chest Surgery Dyspnea Emphysema Hemoptysis Oxygen Administration Tuberculosis Use of C-PAP Machine Hx Neurologic Problems?: Yes Neurological History: Positive for:: CVA Dizziness Denies:: Alzheimer's Disease Dementia Headaches Parkinson's Disease Seizures Hx of GI Problems?: Yes Hx of Problems?: Yes Genitourinary History: Positive for:: Urinary Tract Infection (hx of) Denies:: HX of Hemodialysis Kidney Stones HX of Peritoneal Dialysis: No Female Hx: Denies:: Currently Endometriosis Pelvic Inflammatory Problems with Breasts? Skin History: Positive for:: Pressure Ulcers (wound abscess left buttock current admission problem) Denies:: History Skin Disorders? Hx Musculoskeletal Problems?: Yes Musculoskeletal History: Positive for:: Back Injury (back surgeries- cervical and lumbar fusion) Joint Replacement (hip, knee) Musculoskeletal Trauma (slid off w/c dislocaitng rt hhip prosthesis 12/2015) Hx of Psycho/Social Problems?: No Psycho Social History: Denies:: Anxiety Bipolar Disorder Hx Depression Suicide Attempt Hx Surgeries?: Yes (bilateral hip, bilateral knee) Hx Any Other Health Problems?: Yes Other History: Positive for:: Endocrine Disease Hospitalization Denies:: Cancer Thyroid Disease History Blood Transfusions: Positive for:: Blood Transfuse Reaction (Hives during infusion, swollen ears) Blood Transfusions Hx Diabetes: No Hx Alcohol Use: NoHx Substance Use: No Smoking Status: Former Smoker Have You Smoked inLast 12 mo: No (Quit smoking 41yrs ago) Stop/Bang Treated for Sleep Apnea?: No Do You Have a CPAP Machine?: No P-Blood Pressure: treated: No B- Body Mass Index > 35 kg/m2: No A- Age over 50: Yes N- Neck Large Circumference: No G- Gender Male: No DINH Risk Assessment: Low Risk, <3 Yes Risk Assessment Category Category 1A: Patient has history of documented sleep apnea, and HAS NOT received any narcotic, sedative or anesthesia administration during this stay. Category 1B: Patient has history of documented sleep apnea, and HAS received any narcotic , sedative or anesthesia administration during this stay Category 2: Patient has SUSPECTED Obstructive Sleep Apnea, and HAS received any narcotic , sedative or anesthesia administration during this stay. Category 3: Patient has SUSPECTED Obstructive Sleep Apnea and HAS NOT received narcotic, sedative or anesthesia administration during this stay. Category 4: Outpatient in Procedural Areas with known sleep apnea or who screen positive for High Risk via the STOP/BANG questionnaire. Exam Exam Vital Signs Vital Signs Date Time Temp Pulse Resp B/P Pulse Ox O2 Delivery O2 Flow Rate FiO2 09/09/16 16:00 36.5 66 16 118/60 93 Room Air 09/09/16 15:52 52 14 126/34 99 Room Air 09/09/16 15:47 53 15 147/94 97 Room Air 09/09/16 15:40 60 29 157/79 95 Room Air 09/09/16 15:34 55 13 162/74 100 Nasal Cannula 2 09/09/16 15:31 56 11 144/75 100 Nasal Cannula 2 09/09/16 15:22 36.5 59 12 137/78 99 Nasal Cannula 2 09/09/16 10:43 36.0 55 14 159/100 97 Room Air 171/68 General Appearance: Alert, Oriented X3, Cooperative, No Acute Distress HEENT/AIRWAY: MP 2 Lungs: Clear to Auscultation, Normal Air Movement Heart: Exam Unremarkable, Regular Rate/Rhythm, No Murmurs/Rubs/Gallops Meds/Labs/Diagnostics Admission Meds Current Medications Clindamycin Phosphate/ Dextrose 900 mg/ Premix 50 ml @ 100 mls/hr PREOP ONCE IV Last administered on 09/09/16 14:15; Start 09/09/16 at 06:00; Stop 09/09/16 at 06:29; Status DC Lactated Ringer's (Lr) 1,000 ml @ 10 mls/hr Q24H IV Last administered on 14:15; Start 09/09/16 at 05:00; Stop 09/13/16 at 08:59 Methylene Blue (Methylene Blue 1% Inj) 10 ml STK-MED ONCE XX Last administered on 09/09/16 14:47; Start 09/09/16 at 14:47; Stop 09/09/16 at 14:53; Status DC Labs Test 09/09/16 11:27 Prothrombin Time 10.7sec (8.1-12.5) Prothromb Time International Ratio 1.00ratio Plan Impression Patient chart reviewed, patient interviewed and anesthestic plan with risks, benefits, and alternatives discussed, and informed consent obtained. ASA Physical Status: ASA2 Mod Systemic Disease Anesthetic Plan: GA Bene/Risks/Altern/Consents: Yes HP Complete Prior to Induction: Yes Davey Khan MD Sep 09, 2016 17:34
--- NOTE | 2016-09-09 17:36 | PCM.ANEP1 ---
Post Anesthesia PACU Phase 1 Assessment Vital Signs Vital Signs Date Time Temp Pulse Resp B/P Pulse Ox O2 Delivery O2 Flow Rate FiO2 09/09/16 16:00 36.5 66 16 118/60 93 Room Air 09/09/16 15:52 52 14 126/34 99 Room Air 09/09/16 15:47 53 15 147/94 97 Room Air 09/09/16 15:40 60 29 157/79 95 Room Air 09/09/16 15:34 55 13 162/74 100 Nasal Cannula 2 09/09/16 15:31 56 11 144/75 100 Nasal Cannula 2 09/09/16 15:22 36.5 59 12 137/78 99 Nasal Cannula 2 09/09/16 10:43 36.0 55 14 159/100 97 Room Air 171/68 Anesthetic Administered: GA Level of Alertness: Awake, talking CALDERON's with Equal Strength: Yes Pain: No Nausea or Vomiting: No CV Function & Hydration Stable: Yes Airway Device: none Oxygen Delivery: Nasal Cannula Lungs: Clear to Auscultation, Normal Air Movement Dermatome Level: Full Sensation PACU Phase 2 Assessment Complications: No Follow up Care: No Patient Instructions Provided: N/A Davey Khan MD Sep 09, 2016 17:36
--- NOTE | 2016-09-11 17:12 | OP ---
[address] [address] OPERATIVE REPORT PATIENT: XIAO MEEK : 1935 MR#: [id number] ADMIT: 09/09/2016 JOB ID: [id number] DATE OF SURGERY: 09/09/2016 PREOPERATIVE DIAGNOSIS(ES): Left buttock wound. POSTOPERATIVE DIAGNOSIS(ES): Left buttock wound likely a stage 3 pressure ulcer. PROCEDURE: 1. Excision of left buttock pressure ulcer in preparation for flap closure. 2. Closure of left buttock wound with a left gluteus jessica muscle flap and layered skin closure. SURGEON: Torrey Chatman MD LITHOPONE MILL WORKER: None. ANESTHESIA: General anesthesia. COMPLICATIONS: None apparent. SPECIMEN: Left buttock wound pathology. ESTIMATED BLOOD LOSS: Minimal. DRAINS: A #10 ALBER drain. INDICATIONS FOR PROCEDURE: This is a 81-year-old female patient who developed a left buttock wound in January 2016. The wound persisted and is slow to heal. At this point excision of the wound and closure is indicated. PROCEDURES AND FINDINGS: The patient was identified in the preoperative area. Surgical site was marked. The patient was then taken back to the operating room and placed supine on the stretcher. General anesthesia was induced smoothly. The patient was then placed prone onto the Aguila frame. Pressure points were appropriately padded. The patient was then prepped and draped in the usual sterile manner. It was noted that the patient has a wound on the left buttock. It is approximately 1 cm or so at its opening. Probing revealed that it extend superiorly and medially for approximately 3-4 cm. At this point the interior of the wound was painted with methylene blue. I then turned my attention to excising the wound. An incision was made around the wound with a #15 blade, including approximately 0.5 cm of the wound margin. The incision was then deepened down to the subcutaneous tissue. I was able to incise along the capsule of the wound, elevating the soft tissue off of the capsule of the wound circumferentially. I had to extend the incision superiorly and inferiorly for approximately 3 cm in each direction. I performed this in a chevron shape. This allowed me to elevate a medially based flap to better access the extent of this wound. Once the wound had been from the surrounding soft tissue, it was elevated off the bottom, which consisted of gluteus jessica muscle as well as some of the fascia beneath the muscle. The wound was then removed and passed off to Pathology as a specimen. At this point, the wound measured approximately 5 cm x 4 cm. There was exposed the scar tissue as well as gluteus jessica fascia and muscle. At the central portion of the wound, the wound appears to deepen through the gluteus jessica muscle tissue to the deep fascia underneath it. I elevated this gluteus jessica muscle off of the deep fascia with some blunt dissection through this defect. After this had been done, I incised along the gluteus jessica muscle superiorly and inferiorly, allowing me better access of the subgluteal plane. I then dissected the gluteus muscle on its underside for approximately 4-5 cm laterally. Once this had been done, this obtained mobilization to allow me to reapproximate the wound within the gluteus muscles jessica muscle. This was done with several 2-0 PDS [id number] sutures. Once this has been done, a drain was placed, exiting through a stab incision on the lateral hip. The drain was then secured using a 3-0 nylon drain stitch. Once this had been done, excess skin was trimmed. The skin was then reapproximated, first with a layer of 3-0 Monocryl deep dermal suture, followed by 4-0 Monocryl running subcuticular suture. The patient tolerated the procedure well. Needle count, sponge count, and instrument counts were correct at the end of the procedure. The patient was extubated and transported to recovery in stable condition.
--- NOTE | 2016-09-18 12:55 | PATH ---
SURGICAL PATHOLOGY Attending Physician:Torrey Chatman CASE STATUS: Signed Out PATIENT NAME: XIAO MEEK PID: [id number] : 1935 DATE COLLECTED:09/09/2016 00:00 SPECIMEN: Skin, biopsy CLINICAL HISTORY: LEFT HIP WOUND 1). LEFT HIP WOUND FINAL DIAGNOSIS: 1.LEFT HIP WOUND, DEBRIDEMENT: ULCER, SCAR, AND GRANULATION TISSUE. Negative for neoplasm. ICD10 code L92.9 NOTE: This case has also been reviewed by Dr. Mason, dermatopathologist, who agrees with the interpretation. GROSS DESCRIPTION: Received is one formalin-filled container, labeled with the patient's name and "1. Left hip wound" consists of two beige-bains irregular firm tissue fragments, the largest measuring 3.5 x 2.0 x 1.9 cm with a stalk that is inked blue. Two phlebotomy services representative sections are submitted in cassette 1A. The second fragment measures 1.8 x 1.8 x 1.8 cm, is inked blue. Two phlebotomy services representative sections are submitted in cassette 1B. (ALBER:[id number]) MICRO DESCRIPTION: See diagnosis. ICD-9 CODES: CPT CODES: 1: 20511 Electronically Signed Out Marietta Pelayo M.D.,[facility] [address], [place] [address] Technical component performed at [facility], [facility] [address], [place], [address]
== END 2016-09-09 23:59 | disposition home or self-care (01) ==
LOC: SAS 10:30
PROVIDERS: ATTEND Plastic Surgery
DX: L89.323 Pressure ulcer of left buttock, stage 3 (principal); L03.317 Cellulitis of buttock; L92.9 Granulomatous disorder of the skin and subcutaneous tissue, unspecified; I10 Essential (primary) hypertension; E11.9 Type 2 diabetes mellitus without complications; I82.401 Acute embolism and thrombosis of unspecified deep veins of right lower extremity; D64.9 Anemia, unspecified; M51.36 Other intervertebral disc degeneration, lumbar region; M19.90 Unspecified osteoarthritis, unspecified site; Z96.653 Presence of artificial knee joint, bilateral; Z96.641 Presence of right artificial hip joint; Z79.01 Long term (current) use of anticoagulants; Z87.891 Personal history of nicotine dependence
CPT/HCPCS: 11406; 14001; 36415; 85610; J2405; J3490; J7120